=== PATIENT | male | born 1980 | race Caucasian/White ===

== ENCOUNTER 2020-11-05 07:56 | Emergency (ER) | payer OTHER, SELFPAY ==
--- NOTE | ~2020-11-05 | XR_ITS ---
EXAMINATION: XR CHEST CLINICAL INFORMATION: Chest pain. COMPARISON: 07/23/2019 chest radiographs. TECHNIQUE: Frontal view of the chest was obtained. FINDINGS: No significant abnormality is noted involving the heart, lungs, mediastinum, bony thorax or soft tissues. XR/XR chest 1V IMPRESSION: No acute cardiopulmonary process.
--- NOTE | 2020-11-05 07:58 | ECG_ITS ---
Test Reason : CHEST PAIN Blood Pressure : / mmHG Vent. Rate : 109 BPM Atrial Rate : 109 BPM P-R Int : 144 ms QRS Dur : 066 ms QT Int : 330 ms P-R-T Axes : 088 047 021 degrees QTc Int : 444 ms Sinus tachycardia Otherwise normal ECG When compared with ECG of 22-JUL-2019 21:30, Vent. rate has increased BY 38 BPM Referred By: Generic ED Physician Electronically Signed By:JUSTIN ROWE MD
[2020-11-05 08:08] VITALS: BP 143/97; PULSE 106; RESP 18; TEMP 36.3; BMI 31.3
[2020-11-05 08:28] VITALS: PULSE 103
[2020-11-05 08:29] LABS: MANUAL DIFF FLAG NO
[2020-11-05 08:33] LABS: Basophils Absolute Auto 0.1 X10*3/uL (0.0-0.2); Basophils Percent Auto 0.5 % (0-2); Eosinophils Absolute Auto 0.1 X10*3/uL (0.0-0.4); Eosinophils Percent Auto 0.4 % (0-4); Hematocrit 39.8 % (42-52); Hemoglobin 14.2 g/dl (14.0-18.0); Imm Gran Abs Auto 0.04 X10*3/uL (0.00-0.03); Imm Gran Pct Auto 0.3 % (0.0-0.4); Lymphocytes Absolute Auto 1.8 X10*3/uL (1.2-4.9); Lymphocytes Percent Auto 15.5 % (20-40); Mean Corpuscular HGB Conc 35.7 g/dl (31.0-36.0); Mean Platelet Volume 9.6 fL (9.4-12.4); Monocytes Absolute Auto 0.7 X10*3/uL (0.1-1.2); Monocytes Percent Auto 5.6 % (2-11); Neutrophils Percent Auto 77.7 % (45-73); Platelet Count 354 X10*3/uL (160-400); Red Blood Count 4.74 X10*6/uL (4.60-5.80); White Blood Count 11.6 X10*3/uL (4.8-10.8)
[2020-11-05 09:02] LABS: Anion Gap 18 (12-20); Blood Urea Nitrogen 10 mg/dL (9-16); Calcium 9.4 mg/dL (8.4-10.2); Carbon Dioxide 22 mmol/L (22-29); Chloride 98 mmol/L (96-108); Creatinine Clr Calc Pharmacy 141.1; Estimated Glomerular Filt Rate > 60; Glucose Random 208 mg/dL (60-115); Potassium 3.9 mmol/L (3.3-5.1); Sodium 134 mmol/L (135-145)
[2020-11-05 09:06] LABS: Troponin-I High Sensitivity 10.8 ng/L (<3.5-35.0)
[2020-11-05 09:29] VITALS: BP 135/90; PULSE 100; RESP 18; O2SAT 99
[2020-11-05 10:10] LABS: Prothrombin Time 12.1 SEC (10.8-13.0)
[2020-11-05 10:13] LABS: D Dimer < 200 NG/ML
[2020-11-05 10:21] LABS: COVID-19 Test Negative (Negative); IDNOW Serial# 9DD0AD1C
--- NOTE | 2020-11-05 11:36 | ED_ITS ---
HPI - Arrhythmia/Palpitations General Chief Complaint: Chest Pain Stated Complaint: chest pain, palpitations Time Seen by Provider: 11/05/20 09:14 Source: patient Mode of arrival: ambulatory Limitations: no limitations History of Present Illness HPI narrative: 40-year-old male with a past medical history of palpitations currently on diltiazem for approximately 1 month, hypertension, hyperlipidemia, diabetes, asthma, bipolar disorder 1, PTSD and liver disease presenting to the ED with complaints of palpitations and chest pressure that started at approximately 05:30 that will come up out of his sleep and is still present. He reports that he recently just traveled to [place] on Monday and return back yesterday after having an argument with his . He reports he had to take 4 planes total due to a layover. He reports due to the argument he had with his he was drinking with his friend last night and snorted some heroin. He reports that he was seen at [facility] approximately 1-2 months ago for similar complaint and had a Holter monitor and was started on diltiazem per patient but he is unsure why. He denies being on any blood thinners. He reports associated dizziness/lightheadedness when he stands up. Reports that the dizziness resolves when he sits down or lays down. He also reports associated nausea. He denies any headaches, fevers, neck pain/stiffness, shortness of breath, dyspnea on exertion, orthopnea, cough, vomiting, abdominal pain, diarrhea, constipation. Denies history of a DVT or PE, estrogen uses, recent surgery, recent immobilization. MD complaint: palpitations Onset (ago): hour(s) (Started approximately 05:30 prior to arrival) Duration: constant Severity: mild Context: occurred during rest and awoke with symptoms Arrhythmia history: other (Palpitations currently on diltiazem) Associated symptoms: chest pain and nausea Related Data Allergies Allergy/AdvReac Type Severity Reaction Status Date / Time No Known Allergies Allergy Unverified 02/13/20 17:13 [No Known Allergies*] Review of Systems Review of Systems: Constitutional : No Weight loss, No Fever, No Chills, No Night Sweats, No Fatigue, No Malaise ENT/Mouth : No Hearing loss, No Ear Pain, No Nasal Congestion, No Sinus Pain, No Hoarseness, No sore throat, No Rhinorrhea, No Swallowing Difficulty Eyes: No Eye Pain, No Swelling, No Redness, No Foreign Body, No Discharge, No Vision Changes Cardiovascular : Positive chest pain, positive palpitations, No SOB, no Dyspnea on Exertion, No Orthopnea, No LE Edema Respiratory : No Cough, No Sputum, No Wheezing, No Dyspnea Gastrointestinal : Positive Nausea, No Vomiting, No Diarrhea, No abdominal Pain, No Hematochezia, No Melena Genitourinary : No irregular bleeding, No Dysuria, No Urinary Frequency, No Hematuria, No Urinary Incontinence, No Urgency, No Flank Pain, No Urinary Flow Changes, No Hesitancy Musculoskeletal : No joint pain, No Myalgias, No Joint Swelling Skin : No Skin Lesions, No rash Neuro : Positive dizziness/lightheadedness when standing, No Weakness, No Numbness, No Paresthesias, No Loss of Consciousness, No Headache Psych : No Anxiety/Panic, No Depression, No SI/HI/AH/VH Heme/Lymph: No Bruising, No Bleeding,No Lymphadenopathy Endocrine : No Polyuria, No Polydipsia, No Temperature Intolerance Yes all other systems are reviewed and are negative [facility], [facility] Past Medical History Attestation statement: The following information was validated with the patient. Medical History Asthma Diabetes High cholesterol Hypertension Palpitation Social History Social History Alcohol intake: current Alcohol intake frequency: a few times a week Alcohol type: beer Patient Tobacco Use Status: Current everyday Tobacco user Smoked in Last 30 Days: Yes Use of substances other than those prescribed or required for medical reasons: Yes Substance Use Type: Crack/Cocaine Substance Use Frequency: Occasionally Last Used Substance: Hours (ago) Advance Directives: Yes Advance Directives Information Provided: Yes Advance Directives on File: No Physical Exam Vital Signs: Vital Signs: Last Vital Signs Temp 98.5 F 11/05/20 11:51 Pulse 89 11/05/20 11:51 Resp 14 11/05/20 11:51 BP 135/89 11/05/20 11:51 Pulse Ox 98 11/05/20 11:51 Body Mass Index 31.3 vital signs have been reviewed as normal and appeared to be correct. Blood pressure normal. Heart rate tachycardic at 106. Respiration rate normal. Temperature normal. Oxygen saturation normal. Appearance: Alert. Oriented X3. No acute distress. Head: Normal external exam. Normocephalic. Atraumatic. No Dalton signs noted. No raccoon eyes noted Eyes: PERRLA. EOMI. Conjunctiva and sclera normal. Eyelids normal. ENT: Pharynx normal. Uvula midline. Moist mucous membranes. Neck: Normal inspection. Neck supple. FROM. No adenopathy. Thyroid Normal. No meningeal signs. No neck mass noted. CVS: Normal heart rate and rhythm. Heart sound normal. Pulses normal throughout. No murmurs/rales/gallops. Respiratory: No respiratory distress. Painless inspiration. Breath sounds normal. No wheezes/rales/rhonchi noted. Chest nontender. No accessory muscle usage noted or decreased air movement noted. Abdomen: Soft and nontender. Bowel sounds normal in all 4 quadrants. No dis tention noted. No organomegaly noted. No visible injury noted. Back: No CVA tenderness. Full range of motion noted. No rashes/lesion/induration/fluctuance or signs of infection noted. Skin: Skin warm and dry. Normal skin color. Normal skin turgor. No rashes/lesions/lacerations noted. Extremities: No lower extremity edema. Extremities exhibit normal range of motion. Extremities nontender. Neuro: Oriented X 3. No motor deficit. No sensory deficit. Reflexes normal. Normal steady gait. No focal neuro deficits noted. Vascular: + radial pulses/+ 2 distal pedal pulses/+2 dorsalis pedis b/l. Normal cap refill. No cyanosis noted to upper extremity nails and lower extremity toes nails. Course Course Course Narrative: 9:35am - 40-year-old male with a past medical history of palpitations currently on diltiazem for approximately 1 month, hypertension, hyperlipidemia, diabetes, asthma, bipolar disorder 1, PTSD and liver disease presenting to the ED with complaints of palpitations and chest pressure that started at approximately 05:30 that awoke him out of his sleep and is still present. Recent travel to [place] on Monday returned yesterday. Recent heroin drug usage. Recently seen at [facility] approximately 1 month ago for palpitations started on diltiazem. - labs obtained in triage in patient with an elevated white blood cell count at 11,000. Sodium 134. Random glucose 203. Troponin 10.8. All other labs are within normal limits. COVID swab is negative. EKG is sinus tachycardia with ventricular rate of 109 with a T-wave inversion in lead 3 otherwise no acute processes are noted. Similar compared to prior EKG 07/22/2019. Chest x-ray within normal limits no acute processes are noted. - repeat troponin negative delta went from 10.8-7.9. - patient has been on the cardiac nurse specialist and no changes on the cardiac nurse specialist. Therefore will DC home with instructions to follow-up with grappler and PCP and to return if any new or worsening symptoms. Patient understands agrees with this plan. MDM - Arrhythmia/Palpitations Medical Records Attestation: I reviewed the patient's medical records. Lab Data Attestation: I reviewed the patient's lab results. Result diagrams: 11/05/20 08:24 11/05/20 08:24 Labs: Lab Results 11/05/20 11/05/20 11/05/20 Range/Units 08:24 08:24 08:24 WBC 11.6 H (4.8-10.8) X10*3/uL RBC 4.74 (4.60-5.80) X10*6/uL Hgb 14.2 (14.0-18.0) g/dl Hct 39.8 L (42-52) % MCV 84.0 (80-98) fL MCH 30.0 (27.0-33.0) pg MCHC 35.7 (31.0-36.0) g/dl RDW 11.0 (11.0-16.0) % Plt Count 354 (160-400) X10*3/uL MPV 9.6 (9.4-12.4) fL Immature Gran % (Auto) 0.3 (0.0-0.4) % Neut % (Auto) 77.7 H (45-73) % Lymph % (Auto) 15.5 L (20-40) % [place] % (Auto) 5.6 (2-11) % Eos % (Auto) 0.4 (0-4) % Baso % (Auto) 0.5 (0-2) % Lymph # (Auto) 1.8 (1.2-4.9) X10*3/uL [place] # (Auto) 0.7 (0.1-1.2) X10*3/uL Eos # (Auto) 0.1 (0.0-0.4) X10*3/uL Baso # (Auto) 0.1 (0.0-0.2) X10*3/uL Abs Immat Gran (auto) 0.04 H (0.00-0.03) X10*3/uL Absolute Neuts (auto) 9.0 H (2.0-8.3) X10*3/uL Absolute Nucleated RBC 0.000 (0.0-0.012) X10*3/uL Nucleated RBC % (auto) 0.0 (0.0-0.2) /100WBC PT (10.8-13.0) SEC INR (0.9-1.1) D-Dimer NG/ML Sodium 134 L (135-145) mmol/L Potassium 3.9 (3.3-5.1) mmol/L Chloride 98 (96-108) mmol/L Carbon Dioxide 22 (22-29) mmol/L Anion Gap 18 (12-20) BUN 10 (9-16) mg/dL Creatinine 0.78 (0.5-1.4) mg/dL Estim Creat Clear Calc 141.1 Estimated GFR > 60 Random Glucose 208 H (60-115) mg/dL Calcium 9.4 (8.4-10.2) mg/dL Troponin I High Sens 10.8 (<3.5-35.0) ng/L COVID-19 (DARIN) (Negative) COVID-19 Clin Com 11/05/20 11/05/20 11/05/20 Range/Units 09:49 09:49 11:49 WBC (4.8-10.8) X10*3/uL RBC (4.60-5.80) X10*6/uL Hgb (14.0-18.0) g/dl Hct (42-52) % MCV (80-98) fL MCH (27.0-33.0) pg MCHC (31.0-36.0) g/dl RDW (11.0-16.0) % Plt Count (160-400) X10*3/uL MPV (9.4-12.4) fL Immature Gran % (Auto) (0.0-0.4) % Neut % (Auto) (45-73) % Lymph % (Auto) (20-40) % [place] % (Auto) (2-11) % Eos % (Auto) (0-4) % Baso % (Auto) (0-2) % Lymph # (Auto) (1.2-4.9) X10*3/uL [place] # (Auto) (0.1-1.2) X10*3/uL Eos # (Auto) (0.0-0.4) X10*3/uL Baso # (Auto) (0.0-0.2) X10*3/uL Abs Immat Gran (auto) (0.00-0.03) X10*3/uL Absolute Neuts (auto) (2.0-8.3) X10*3/uL Absolute Nucleated RBC (0.0-0.012) X10*3/uL Nucleated RBC % (auto) (0.0-0.2) /100WBC PT 12.1 (10.8-13.0) SEC INR 1.0 (0.9-1.1) D-Dimer < 200 NG/ML Sodium (135-145) mmol/L Potassium (3.3-5.1) mmol/L Chloride (96-108) mmol/L Carbon Dioxide (22-29) mmol/L Anion Gap (12-20) BUN (9-16) mg/dL Creatinine (0.5-1.4) mg/dL Estim Creat Clear Calc Estimated GFR Random Glucose (60-115) mg/dL Calcium (8.4-10.2) mg/dL Troponin I High Sens 7.9 (<3.5-35.0) ng/L COVID-19 (DARIN) Negative (Negative) COVID-19 Clin Com See Note Imaging Data Chest x-ray: Attestation: I personally reviewed and interpreted this imaging study as follows: Radiologist's impression: FINDINGS: No significant abnormality is noted involving the heart, lungs, mediastinum, bony thorax or soft tissues. XR/XR chest 1V IMPRESSION: No acute cardiopulmonary process. ECG Data Attestation: I personally reviewed and interpreted this ECG as follows: ECG interpretation date: 11/05/20 ECG interpretation time: 08:02 Interpretation: EKG is sinus tachycardia with ventricular rate of 109 with a T- wave inversion in lead 3 otherwise no acute processes are noted. Similar compared to prior EKG 07/22/2019. Scores Heart Score History: -1- moderately suspicious ECG: -0- normal Age: -0- < or = 45 Risk factory: -2- 3 or more risk factors or treated atherosclerosis Troponin: -1- >1 - <3x normal limit Score: 4 Risk: 16.6% Discharge Plan Discharge Clinical Impression: Palpitation, Chest pain Patient Disposition: Home, Self-Care Instructions: Heart Palpitations (ED), Chest Pain (ED) Additional Instructions: Please continue taking your previously prescribed medications as previously prescribed. You need to follow-up with your grappler and your PCP. Return if any new or worsening symptoms. Please do not do any drugs they are bad for you. Referrals: Physician,Unknown [Primary Care Provider] - 2 days Chinmay Almaraz MD [Physician] - 2 days Stand Alone Forms: Work/School Release Print Language: Kazakh
[2020-11-05 11:51] VITALS: BP 135/89; PULSE 89; RESP 14; TEMP 36.9; O2SAT 98
[2020-11-05 12:26] LABS: Troponin-I High Sensitivity 7.9 ng/L (<3.5-35.0)
[2020-11-05 13:00] VITALS: BP 153/97; PULSE 88; RESP 18; O2SAT 99
== END 2020-11-05 13:44 | disposition home or self-care (01) ==
PROVIDERS: Physician Assistant Medical; Emergency Provider Emergency Medicine Emergency Medical Services
DX: R07.9 Chest pain, unspecified (principal); R00.2 Palpitations; R42 Dizziness and giddiness; R00.0 Tachycardia, unspecified; Z20.822 Contact with and (suspected) exposure to COVID-19; I10 Essential (primary) hypertension; E78.5 Hyperlipidemia, unspecified; E11.9 Type 2 diabetes mellitus without complications; F17.210 Nicotine dependence, cigarettes, uncomplicated
CPT/HCPCS: 36415; 71045; 80048; 84484; 85025; 85379; 85610; 87635; 93005; 99284; 99285

== ENCOUNTER 2021-06-08 11:01 | Outpatient (REF) | payer OTHER, SELFPAY ==
[2021-06-08 13:15] LABS: Binax Internal Control QC Valid; Binax Now Covid-19 Ag Negative (Negative)
== END 2021-06-08 11:02 | disposition home or self-care (01) ==
LOC: HO.LAB 11:01
PROVIDERS: Visit Provider Internal Medicine
DX: Z20.822 Contact with and (suspected) exposure to COVID-19 (principal)
CPT/HCPCS: C9803

== ENCOUNTER 2023-02-10 12:53 | Inpatient (IN) | payer OTHER, SELFPAY ==
--- NOTE | ~2023-02-10 | XR_ITS ---
EXAMINATION: XR CHEST CLINICAL INFORMATION: Chest pain. Cocaine use. COMPARISON: 11/05/2020 TECHNIQUE: 2 views of the chest were obtained. FINDINGS: The lungs are well expanded. No focal consolidation. No pleural effusion. Cardiac silhouette is unchanged. XR/XR chest 2V IMPRESSION: No acute abnormality.
[2023-02-10 13:06] VITALS: BP 172/95; PULSE 108; RESP 18; TEMP 36.6; O2SAT 98; BMI 30.3
--- NOTE | 2023-02-10 13:16 | ED_ITS ---
HPI - Chest Pain General Chief Complaint: Psychiatric Symptoms Stated Complaint: depression/ SI Time Seen by Provider: 02/10/23 13:14 Source: patient Mode of arrival: ambulatory Limitations: no limitations History of Present Illness HPI narrative: 43-year-old male who presents emergency department for evaluation of depression and chest pain. Patient states that he has a history of depression, he states that he ran out of his medications approximately 1 or 2 months prior. He states that his ex-, who was its best friend 1 month prior and this made his depression worse. States that he started drinking and he believes that this is made his depression worse as well. Patient states that he drinks 12 beers and a half a pt of whiskey every other day. He states he did drink prior to coming to the emergency department. He states that when he stop drinking in the past he does get shakes and that in the past he has had delirium tremens with auditory hallucinations. Patient did use intranasal cocaine at 23:00 last night. He states that approximately 3 hours prior to coming to the emergency department he did developed chest pain. He describes as a pressure-like pain in the center of his chest that is been constant, worse with movement. He did have associated shortness of breath. The pain is 7/10 at its worst. The pain did not radiate to his neck, jaw or back. States he has had similar pain in the past. He denied fever, chills, rhinorrhea, sore throat, cough, nausea, vomiting, abdominal pain. Related Data Allergies Allergy/AdvReac Type Severity Reaction Status Date / Time No Known Allergies Allergy Verified 02/10/23 13:03 [No Known Allergies*] Review of Systems 2 Review of Systems: Yes all other systems are reviewed and are negative [facility] Past Medical History Attestation statement: The following information was validated with the patient. [facility] Narrative: Social history: He states that he stop smoking cigarettes by your prior but started smoking again yesterday. He does admit to using cocaine at 23:00 and he does drink alcohol daily he states he did drink prior to coming to the emergency department. Medical History Asthma Diabetes High cholesterol Hypertension Palpitation Social History Social History Alcohol intake: current Alcohol intake frequency: a few times a week Alcohol type: beer Patient Tobacco Use Status: Current everyday Tobacco user Substance Use Type: Crack/Cocaine Advance Directives: No Physical Exam 2 Vital Signs: Vital Signs: Last Vital Signs Temp 99.2 F 02/10/23 16:52 Pulse 89 02/10/23 16:52 Resp 18 02/10/23 16:52 BP 153/92 H 02/10/23 16:52 Pulse Ox 96 02/10/23 16:52 O2 Del Method Room Air 02/10/23 16:52 BMI result Body Mass Index 30.3 Vital signs revealed an elevated pulse of 108 and elevated blood pressure of 172/95 Exam: General: Awake, alert in no distress Head: Normocephalic, atraumatic EENT: PERRL, Lids normal, sclera normal, conjunctiva normal, nose normal , ears normal, throat without erythema or exudates Neck: Supple, no adenopathy, trachea midline and nontender Lung: breath sounds symmetric, no wheezing, rales or rhonchi Chest: symmetric movement, nontender Heart: regular rate and rhythm, normal S1, S2 no murmurs or rubs Abdomen: soft, non-tender, nondistended, normal bowel sounds Back: no vertebral tenderness, no CVAT Extremities: no deformities, moves all extremities symmetrically Skin: no rashes, no lesion, normal color and warmth Neuro: Awake, alert, oriented, normal speech, cranial nerves intact, moves all extremities symmetrically Psych: Pleasant, cooperative Medications Administered Discontinued Medications Generic Name Dose Route Start Last Admin Trade Name Freq PRN Reason Stop Dose Admin Ibuprofen 400 mg 02/10/23 13:33 02/10/23 13:38 Ibuprofen 400 Mg Tablet PO 02/10/23 13:34 400 mg ONCE ONE Administration Lorazepam 2 mg 02/10/23 13:33 02/10/23 13:38 Lorazepam 1 Mg Tablet PO 02/10/23 13:34 2 mg ONCE STA Administration Medical Decision Making Medical Decision Making MDM Narrative: 43-year-old male with a history of depression, bipolar disorder, PTSD, hypertension, high cholesterol, diabetes, asthma, alcohol use disorder, cocaine use who presents emergency department for evaluation of increased depression, chest pain x3 hours-did use cocaine yesterday at 23:00. Patient does drink a significant amount of alcohol daily-12 beers and half a pt of whiskey. Patient's vital signs did reveal an elevated pulse and elevated blood pressure otherwise unremarkable. Physical examination was unremarkable. I ordered a CBC, CMP, PT/INR, PTT, troponin, ethanol level, 12 EKG, two view chest x-ray, COVID-19, urine drug screen, CK, urinalysis. Patient's pain was treated with Motrin 400 mg orally. Patient was also given Ativan 2 mg orally and I ordered Ativan 2 mg orally every 2 hours as needed for alcohol withdrawal. Patient was also started on a CIWA protocol. 1636 Patient EKG and chest x-ray unremarkable. Patient's ETOH level was below detectable limits. Patient's high sensitive troponin I was detectable but not elevated at 9.8, repeat is due at 17:30 hours. At the end of my shift, patient's care was turned over to my colleague, Dr. Burgess. If the patient's repeat high sensitive troponin I is not elevated then the patient can be medically cleared 1716: Patient was seen by care team reported the following [facility] for SI. He is actively suicidal with a plan to drive his car into on coming traffic due to his depression. I have consulted with my equipment records supervisor and we believe that the pt should go inpatient. Differential Diagnosis Differential Diagnoses: The differential diagnosis associated with the presentation includes Differential diagnosis includes was not limited to depression, suicidal ideation, homicidal ideation, musculoskeletal pain, myocardial infarction, myocardial ischemia, rhabdomyolysis, electrolyte abnormality, anemia Admission/Observation Consideration of admission/observation: Escalation of care including admission/observation considered Lab Data MDM Lab Attestation statement: I reviewed the patient's lab results. My interpretation patient's laboratory evaluation is as follows: CBC was normal. Coags were normal. Glucose elevated 184. Troponin at 1356 was detectable but not elevated at 9.8. Repeat due at 16:30 hours. UA was negative. U tox positive for cocaine . ETOH below detectable limits. COVID-19 pending. 02/10/23 13:56 02/10/23 13:56 Labs: Lab Results 02/10/23 02/10/23 Range/Units 13:28 13:56 WBC 10.5 (4.8-10.8) X10*3/uL RBC 4.93 (4.60-5.80) X10*6/uL Hgb 14.6 (14.0-18.0) g/dl Hct 41.9 L (42.0-52.0) % MCV 85.0 (80.0-98.0) fL MCH 29.6 (27.0-33.0) pg MCHC 34.8 (31.0-36.0) g/dl RDW 12.0 (11.0-16.0) % Plt Count 348 (160-400) X10*3/uL MPV 10.0 (9.4-12.4) fL Immature Gran % (Auto) 0.3 (0.0-0.4) % Neut % (Auto) 74.3 H (45-73) % Lymph % (Auto) 17.0 L (20-40) % [place] % (Auto) 6.9 (2-11) % Eos % (Auto) 1.0 (0-4) % Baso % (Auto) 0.5 (0-2) % Lymph # (Auto) 1.8 (1.2-4.9) X10*3/uL [place] # (Auto) 0.7 (0.1-1.2) X10*3/uL Eos # (Auto) 0.1 (0.0-0.4) X10*3/uL Baso # (Auto) 0.1 (0.0-0.2) X10*3/uL Abs Immat Gran (auto) 0.03 (0.00-0.03) X10*3/uL Absolute Neuts (auto) 7.8 (2.0-8.3) x10*3/uL Absolute Nucleated RBC 0.000 (0.0-0.012) X10*3/uL Nucleated RBC % (auto) 0.0 (0.0-0.2) /100WBC PT 10.5 L (11.1-13.3) SEC INR 0.9 (0.9-1.1) APTT 33.8 (26.0-36.4) SEC Sodium 138 (135-145) mmol/L Potassium 4.0 (3.3-5.1) mmol/L Chloride 102 (96-108) mmol/L Carbon Dioxide 27 (22-29) mmol/L Anion Gap 13 (12-20) BUN 10 (9-16) mg/dL Creatinine 0.82 (0.5-1.4) mg/dL Estim Creat Clear Calc 128.1 Estimated GFR > 60 Random Glucose 184 H (60-115) mg/dL Calcium 9.8 (8.4-10.2) mg/dL Total Bilirubin 0.6 (0.0-1.0) mg/dL AST 25 (5-37) U/L ALT 30 (0-40) U/L Alkaline Phosphatase 94 (39-117) U/L Total Creatine Kinase 271 H (38-174) U/L Troponin I High Sens 9.8 (<3.5-35.0) ng/L Total Protein 8.0 (6.5-8.0) g/dL Albumin 4.8 (3.5-5.0) g/dL Lipase 18 (8-78) U/L Urine Color Yellow Urine Appearance Clear Urine pH 5.5 (5.0-9.0) Ur Specific Campbell 1.010 (1.005-1.025) Urine Protein Negative (Neg-Trace) mg/dL Urine Glucose (UA) 100 H (Negative) mg/dL Urine Ketones Negative (Negative) mg/dL Urine Blood Negative (Negative) Urine Nitrite Negative (Negative) Ur Leukocyte Esterase Negative (Negative) Urine Opiates Screen Not Detected (Not Detect) Urine Fentanyl Screen Not Detected (Not Detect) Ur Barbiturates Screen Not Detected (Not Detect) Ur Phencyclidine Scrn Not Detected (Not Detect) Ur Amphetamines Screen Not Detected (Not Detect) U Benzodiazepines Scrn Not Detected (Not Detect) Urine Cocaine Screen POSITIVE H (Not Detect) U Marijuana (THC) Screen Not Detected (Not Detect) Ethyl Alcohol < 10 mg/dL Independent Interpretation I performed an independent interpretation of an: EKG Interpretation: My independent interpretation patient's 12 EKG done at 13 18 is as follows: Normal sinus rhythm with a rate of 93, normal ID interval, QRS duration QTC interval, no ST segment elevation, no ST segment depression, no PACs, no PVCs, this is a normal EKG. My independent interpretation patient's two view x-rays as follows: No acute process, no pneumothorax Radiology Impression Discussion of test interpretation with radiology: I have reviewed the radiologist's reading. Radiologist Impression: XR chest 2V IMPRESSION: No acute abnormality. Dictated By: Ector Mae MD Discharge Plan Discharge Clinical Impression: Depression, Chest pain, Cocaine use, Alcohol use, Suicidal ideation Patient Disposition: Still a Patient Interventions: [place]-Suicide Risk Severity Scale Last Done: 02/10/23 14:43
--- NOTE | 2023-02-10 13:16 | ECG_ITS ---
Test Reason : CHEST PAIN Blood Pressure : / mmHG Vent. Rate : 093 BPM Atrial Rate : 093 BPM P-R Int : 156 ms QRS Dur : 072 ms QT Int : 366 ms P-R-T Axes : 066 065 024 degrees QTc Int : 455 ms Normal sinus rhythm Normal ECG When compared with ECG of 05-NOV-2020 08:02, No significant change was found Referred By: Juan Vila Electronically Signed By:CHA SOLITARIO
[2023-02-10] MEDS: Ibuprofen 400 MG TABLET PO (13:38)
[2023-02-10] MEDS: LORazepam 1 MG TABLET 2 MG PO (13:38)
[2023-02-10 13:40] LABS: Appearance Urine Clear; Color Urine Yellow; Glucose Urine UA 100 mg/dL (Negative); Leukocyte Esterase Urine Negative (Negative); Nitrite Urine Negative (Negative); PH 5.5 (5.0-9.0); Urine Blood Negative (Negative); Urine Ketones Negative (Negative); Urine Protein Negative (Neg-Trace)
[2023-02-10 14:03] LABS: MANUAL DIFF FLAG NO
[2023-02-10 14:11] LABS: INTERNATIONAL NORM RATIO 0.9 (0.9-1.1); Prothrombin Time 10.5 SEC (11.1-13.3)
[2023-02-10 14:12] LABS: Basophils Absolute Auto 0.1 X10*3/uL (0.0-0.2); Basophils Percent Auto 0.5 % (0-2); Eosinophils Absolute Auto 0.1 X10*3/uL (0.0-0.4); Hematocrit 41.9 % (42.0-52.0); Hemoglobin 14.6 g/dl (14.0-18.0); Imm Gran Abs Auto 0.03 X10*3/uL (0.00-0.03); Imm Gran Pct Auto 0.3 % (0.0-0.4); Lymphocytes Absolute Auto 1.8 X10*3/uL (1.2-4.9); Mean Corpuscular HGB Conc 34.8 g/dl (31.0-36.0); Mean Corpuscular Hemoglobin 29.6 pg (27.0-33.0); Monocytes Absolute Auto 0.7 X10*3/uL (0.1-1.2); Monocytes Percent Auto 6.9 % (2-11); Neutrophils Absolute Auto 7.8 x10*3/uL (2.0-8.3); Neutrophils Percent Auto 74.3 % (45-73); Platelet Count 348 X10*3/uL (160-400); Red Blood Count 4.93 X10*6/uL (4.60-5.80); White Blood Count 10.5 X10*3/uL (4.8-10.8)
[2023-02-10 14:14] LABS: Partial Thromboplastin Time 33.8 SEC (26.0-36.4)
[2023-02-10 14:24] LABS: Ethanol < 10 mg/dL
[2023-02-10 14:25] LABS: Alanine Aminotransferase 30 U/L (0-40); Albumin Level 4.8 g/dL (3.5-5.0); Alkaline Phosphatase 94 U/L (39-117); Anion Gap 13 (12-20); Aspartate Amino Transferase 25 U/L (5-37); Bilirubin Total 0.6 mg/dL (0.0-1.0); Blood Urea Nitrogen 10 mg/dL (9-16); Calcium 9.8 mg/dL (8.4-10.2); Carbon Dioxide 27 mmol/L (22-29); Chloride 102 mmol/L (96-108); Creatinine Clr Calc Pharmacy 128.1; Estimated Glomerular Filt Rate > 60; Glucose Random 184 mg/dL (60-115); Lipase 18 U/L (8-78); Sodium 138 mmol/L (135-145)
[2023-02-10 14:26] LABS: Amphetamine Screen Urine Not Detected (Not Detect); Barbiturates, Urine Not Detected (Not Detect); Benzodiazepines Screen Urine Not Detected (Not Detect); Cannabinoid Screen Urine Not Detected (Not Detect); Cocaine Screen Urine POSITIVE (Not Detect); Fentanyl, urine Not Detected (Not Detect); Opiate Screen Urine Not Detected (Not Detect); Phencyclidine Screen Urine Not Detected (Not Detect)
[2023-02-10 14:28] LABS: Troponin-I High Sensitivity 9.8 ng/L (<3.5-35.0)
--- NOTE | 2023-02-10 14:35 | PC.NURSE ---
calm, cooperative and polite since arrival, medicated as ordered, aware and agreeable to care plan, will draw 2nd troponin at 1700, nad, off unit for chest xray, took a shower and now in bed
--- NOTE | 2023-02-10 16:51 | PC.NURSE ---
patient calm and cooperative, luxembourger speaking male. Resting comfortably on bed at this time, respirations even and unlabored, skin pwd, no signs of withdrawal at this time. Pt offers no complaints to this RN. Handy, CARE team spoke with patient. awaiting dinner at this time
[2023-02-10 16:52] VITALS: BP 153/92; PULSE 89; RESP 18; TEMP 37.3; O2SAT 96
[2023-02-10 17:24] LABS: COVID-19 Test Negative (Negative); IDNOW Serial# BCCEAD1C
--- NOTE | 2023-02-10 18:11 | MHC.CARE ---
T/W tried to contact [facility] multiple times to try and present for an IPLOC stay. Something must be wrong with their phones as the call gets disconnected almost immediately. T/W will continue to try [facility] at [phone].
--- NOTE | 2023-02-10 18:44 | PC.NURSE ---
Patient sleeping, respirations even and unlabored, skin pwd, no apparent distress. Offers no complaints to this RN when awake. Second trop drawn. Per CARE team, plan for inpt admission
[2023-02-10 18:56] LABS: Troponin-I High Sensitivity 8.5 ng/L (<3.5-35.0)
--- NOTE | 2023-02-10 22:24 | MHC.CARE ---
CARE Team attempted to call [facility] again to no avail. A message for a call back was left earlier in the night and the option to leave a message for a call back was not offered this time around. CARE Team will continue to attempt to get ahold of [facility] for a pre-auth
[2023-02-10 23:39] VITALS: BP 151/92; PULSE 95; RESP 18; TEMP 36.4; O2SAT 98; BMI 29.4
--- NOTE | 2023-02-10 23:40 | MHC.CARE ---
CARE Team reached [facility] and received auth for the pt. Auth number is [id number] with a review date on Monday02/14/23. [place] Mohamud is the person to call for the review at [phone].
[2023-02-11 00:24] LABS: Glucose, Whole Blood 187 mg/dL (60-115)
--- NOTE | 2023-02-11 00:41 | PC.ADMIT ---
Dylon is admitted on a CV for the [facility] for unspecified depressive d/o and suicidal ideation to drive his car into traffic. He is calm, cooperative and oriented X's4. Dylon endorses worsening depression and anxiety. he endorses auditory/visual hallucinations and vivid dreams. He denies homicidal ideation. His mood is depressed and his affect is flat. he is tearful during the admission and stated that he has a childhood trauma history and that his ex-, whom he describes as his best friend, recently. Additionally he states he still feels very depressed over the passing of his brother 2 years ago. he states that he drinks approximately 12 beers daily and that he last drank this morning (3 beers). he has been placed on a CIWA and is not currently showing any S/S of ETOH withdrawal at this time. The patient states that he was prescribed a C-Pap machine but has never used it. oriented to the unit, monitor for safety, Plan of Care initiated.
[2023-02-11 07:53] LABS: Estimated Average Glucose 146 mg/dL; Hemoglobin A1c % 6.7 % (<6.0)
[2023-02-11 08:09] LABS: Alanine Aminotransferase 20 U/L (0-40); Albumin Level 3.8 g/dL (3.5-5.0); Alkaline Phosphatase 80 U/L (39-117); Anion Gap 10 (12-20); Aspartate Amino Transferase 21 U/L (5-37); Bilirubin Total 0.7 mg/dL (0.0-1.0); Blood Urea Nitrogen 11 mg/dL (9-16); Calcium 9.1 mg/dL (8.4-10.2); Carbon Dioxide 25 mmol/L (22-29); Chloride 105 mmol/L (96-108); Cholesterol 164 mg/dL (<200); Estimated Glomerular Filt Rate > 60; Glucose Fasting 140 mg/dL (60-99); HDL Cholesterol 37 mg/dL (>40); LDL Cholesterol Calculated 87 mg/dL (<100); Potassium 4.1 mmol/L (3.3-5.1); Sodium 136 mmol/L (135-145); Total Protein 6.6 g/dL (6.5-8.0); Triglycerides 203 mg/dL (<150)
[2023-02-11 08:10] VITALS: BP 149/73; PULSE 71; RESP 16; TEMP 36.2; O2SAT 97
[2023-02-11 08:23] LABS: Glucose, Whole Blood 137 mg/dL (60-115)
[2023-02-11 08:24] LABS: Thyroid Stimulating Hormone 0.28 uIU/mL (0.32-4.0)
[2023-02-11 08:40] LABS: Folate 12.6 ng/mL (> or = 4.0); Vitamin B12 318 pg/mL (200-900)
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
[2023-02-11] MEDS: Loratadine 10 MG TABLET PO (10:00)
[2023-02-11] MEDS: hydrOXYzine HCL 25 MG TABLET PO (10:00)
[2023-02-11] MEDS: dilTIAZem HCL CD 180 MG CAP.ER.24H PO (10:15)
[2023-02-11] MEDS: Acamprosate Calcium 333 MG TABLET.DR 666 MG PO ×2 (10:15→21:40)
[2023-02-11 16:00] VITALS: BP 137/82; PULSE 77; RESP 17; TEMP 36.6; O2SAT 97
[2023-02-11] MEDS: LORazepam 1 MG TABLET 2 MG PO (16:35)
--- NOTE | 2023-02-11 17:07 | PC.NURSE ---
Patient spent most of shift in bed resting and isolating in his room. Patient able to engage in conversation easily and is making his needs known. Dylon reports eating some of his meals, with no n/v noted. Patient on CIWA q 4 hours and scored 7 at 0800, 6 at 12noon, and 10 at 1600. Patient received Ativan 2mg at 1639 and vistaril 25mg at 1000 for c/o of anxiety 7/10 with relief noted at 1100. Hospitalist notified of Patient's lab results TSH 0.28, Hgaic 6.7, HDL 37 and trigliceride 203. New order received for POC BID which were 127,158 with no s/s hypo/hyperglycemia noted. Patient denies SI/HI, but did report that he hears a whisper of a voice. Per patient, they are mild and do not command me. Patient declined to elaborate at this time. Patient encourage to shower and get OOB to groups but declined. He medication and treatment compliant with no unsafe behavior observed.
[2023-02-11 17:15] LABS: Glucose, Whole Blood 158 mg/dL (60-115)
[2023-02-11 20:10] VITALS: BP 140/90; PULSE 85; RESP 18; TEMP 36.9; O2SAT 96
[2023-02-11] MEDS: cloNIDine HCL 0.1 MG TABLET PO (22:46)
[2023-02-11] MEDS: Prazosin HCL 1 MG CAPSULE 2 MG PO (22:46)
--- NOTE | 2023-02-11 22:48 | PC.NURSE ---
Dylon c/o not having Clonidine or Prazosin for HS medications, new orders obtained for clonidine 0.1 mg and Prazosin 2mg at HS. patient accepted medications without incident, continue to monitor for safety, continue Plan of Care
[2023-02-12 08:35] VITALS: BP 132/85; PULSE 85; RESP 16; TEMP 36.6; O2SAT 98
[2023-02-12 08:40] LABS: Glucose, Whole Blood 121 mg/dL (60-115)
[2023-02-12] MEDS: dilTIAZem HCL CD 180 MG CAP.ER.24H PO (09:31)
[2023-02-12] MEDS: Loratadine 10 MG TABLET PO (09:31)
[2023-02-12] MEDS: Acamprosate Calcium 333 MG TABLET.DR 666 MG PO ×2 (09:31→21:39)
[2023-02-12] MEDS: Acetaminophen 325 MG TABLET 650 MG PO (10:04)
--- NOTE | 2023-02-12 11:45 | PC.NURSE ---
Per patient, i had a thought to last night, but didn't tell anyone. I didn't hurt myself and I do not feel like hurting my self now. Patient unable to describe how he was going to hurt self last night. No plan voiced just vague SI. Miri Cannon FLYER REPAIRER notified of above. Patient alert Ox4, Currently denies SI/HI, or VH. Patient did report having voices but not command type or bothersome. POC this am was 121, Patient denies s/s of hypo/hyperglycemia. Patinet continues on CIWA q 4 hours current score was 5 with no concerns voiced. Patient spent most of shift in bed, resting and withdrawn. He appears depressed and slightly anxious upon approach. Patient is medication and treatment compliant. Patient is making his needs known appropriately. ADL's appear fair, patient encourage to shower and attend unit activities. Per patient, mu lower back hurts and want to rest. Patient utilize PRn tylenol for pain with effect noted in asleep. Patient signed his treatment plan this shift with quality control lead nurse. No unsafe behavior expressed or exhibited this shift.
[2023-02-12] MEDS: LORazepam 1 MG TABLET 2 MG PO ×2 (12:34→16:50)
--- NOTE | 2023-02-12 16:13 | PC.NURSE ---
Addendum entered by Valeria Bowie RN 02/12/23 18:34: Patient stated, I need to call my employer tomorrow, was suppose to start a job that i really wanted. Patient tearful and given one to one contact with T/W. Patient used unit phone to call his girlfriend continued to be tearful. Patient reported he was safe and just upset about his job. Patient offered PRN for anxiety and declined. Per patient, i don't need anything now, I'm safe. Addendum entered by Valeria Bowie RN 02/12/23 16:54: Patient woken at 1600 to complete CIWA assessment and scored 11, Patient b/p 114/59 with HR of 72. Miri Cannon NP. informed of patient's increased voices and safety status. B/P rechecked and 120/64 Hr 78. Patient reports 5/10 anxiety and Given Ativan 2mg for ciwa score or 11. No unsafe behavior observed. Patient remain in bed with no further complaints voiced. Original Note: Patient assessed for Ciwa by this script writer at 1200pm scored a 10 and at 1600 scored a 11. Patient medicated with ativan 2mg for his s/s of withdrwal see ciwa assessment for details. Patient continues to have voices which he reported at 1600 telling him to but no plan reported by patient. Patient stated, i am not going to hurt myself here. Patient agreed to notify staff if he felt unsafe or had changes in his safety. No unsafe behavior noted.
[2023-02-12 16:50] VITALS: BP 120/64; PULSE 78
--- NOTE | 2023-02-12 20:19 | HO.PSYCHPN ---
Subjective Subjective Date of Service: 02/12/23 Reason For Visit: SI Subjective Notes: Conditional Voluntary Interim History: Pt reports feeling slightly better but still worried about hsi alcohol use and how is affecting his relationships and life. He reports feeling depressed. He continues to endose SI but no plan. When RN doing ciwa he was reporting hallucination- He does not appear internally preoccupied and these do not appear to be alcohol hallucinosis- I wouldn't score them as such. Review of Systems Review of Systems Pt denies chest pain. No SOB. No changes in vision. Pt reports acid reflux, no vomiting, or signs of gastric bleeding (vomiting blood). He reports intermittent numbness of bilat hands and feet Pt reports lower back pain No diarhea, or loose stools, no abdominal pain Yes all other systems are reviewed and are negative Mental Status Exam Mental Status Exam Narrative: Appearance:wearing hospital gown, fair hygiene, in NAD behavior:cooperative Psychomotor:no agitation or retardation noted Speech:clear, normal rate/rhythm/volume, spontaneous TP:linear TC:feeling depressed, hopeless at times but also wanting to get help for alcohol and cocaine use. Mood: depressed Affect:tearful, blunted SI:passive HI:none VH/AH:pt describes hearing someone calling his name and shadows, mostly when he is waking up, and feels paralyzed, suspect these are hypnopompic hallucinations, which could be related to alcohol-induced narcolepsy-like symptoms. tx for these is not antipsychotics. No AH/VH during the day. Delusions:none Insight/judgment:fair x 2. memory/cog: alert, oriented x 3. some gaps in memory when providing hx of treatment and other information but not formally tested. Diagnostics Vital Signs (24Hr): Vital Signs - 24 hr 02/12/23 08:35 02/12/23 16:50 Temperature 97.9 F Pulse Rate 85 78 Respiratory Rate 16 Blood Pressure 132/85 120/64 Pulse Oximetry 98 Oxygen Delivery Method Room Air BMI result Body Mass Index 29.4 Labs 02/10/23 13:56 02/11/23 07:29 Labs: Laboratory Results - last 48 hr 02/11/23 02/11/23 02/11/23 00:20 07:29 08:14 Sodium 136 Potassium 4.1 Chloride 105 Carbon Dioxide 25 Anion Gap 10 L BUN 11 Creatinine 0.72 Estim Creat Clear Calc 144.0 Estimated GFR > 60 POC Glucose 187 H 137 H Fasting Glucose 140 H Estimat Average Glucose 146 Hemoglobin A1c % 6.7 H Calcium 9.1 D Total Bilirubin 0.7 AST 21 ALT 20 Alkaline Phosphatase 80 Total Protein 6.6 Albumin 3.8 Triglycerides 203 H Cholesterol 164 LDL Cholesterol, Calc 87 HDL Cholesterol 37 L Vitamin B12 318 Folate 12.6 TSH 0.28 L 02/11/23 02/12/23 17:11 08:25 Sodium Potassium Chloride Carbon Dioxide Anion Gap BUN Creatinine Estim Creat Clear Calc Estimated GFR POC Glucose 158 H 121 H Fasting Glucose Estimat Average Glucose Hemoglobin A1c % Calcium Total Bilirubin AST ALT Alkaline Phosphatase Total Protein Albumin Triglycerides Cholesterol LDL Cholesterol, Calc HDL Cholesterol Vitamin B12 Folate TSH Imaging Radiology Impressions: ITS Impressions Chest X-Ray 02/10/23 14:07 IMPRESSION: No acute abnormality. Medications Medications Current Medications Acamprosate (Acamprosate Calcium 333 Mg Tablet.) 666 mg PO BID [facility] Last Admin: 02/12/23 09:31 Dose: 666 mg Acetaminophen (Acetaminophen 325 Mg Tablet) 650 mg PO Q6H PRN PRN Reason: Headache/Pain Mild Scale (1-3) Last Admin: 02/12/23 10:04 Dose: 650 mg Al Hydroxide/Mg Hydroxide (Magnesium Hydrox/Alum Hydrox 30 Ml Oral.Susp) 30 ml PO Q6H PRN PRN Reason: Heartburn/Nausea Clonidine HCl (Clonidine Hcl 0.1 Mg Tablet) 0.1 mg PO BEDTIME [facility]; Protocol Last Admin: 02/11/23 22:46 Dose: 0.1 mg Diltiazem HCl (Diltiazem Hcl Cd 180 Mg Cap.Er.24h) 180 mg PO DAILY [facility], [facility]; Protocol Last Admin: 02/12/23 09:31 Dose: 180 mg Famotidine (Famotidine 20 Mg Tablet) 20 mg PO BID PRN PRN Reason: heartburn Hydroxyzine HCl (Hydroxyzine Hcl 25 Mg Tablet) 25 mg PO Q6H PRN PRN Reason: Anxiety Last Admin: 02/11/23 10:00 Dose: 25 mg Lamotrigine (Lamotrigine 25 Mg Tablet) 50 mg PO BID [facility] Loratadine (Loratadine 10 Mg Tablet) 10 mg PO DAILY [facility] Last Admin: 02/12/23 09:31 Dose: 10 mg Lorazepam (Lorazepam 1 Mg Tablet) 2 mg PO Q4H PRN PRN Reason: ciwa 8-12 Last Admin: 02/12/23 16:50 Dose: 2 mg Magnesium Hydroxide (Milk Of Magnesia 30 Ml Oral.Susp) 30 ml PO DAILY PRN PRN Reason: Constipation Mirtazapine (Mirtazapine 30 Mg Tablet) 30 mg PO BEDTIME [facility] Non-Formulary Medication (Dulaglutide [Trulicity]) 0.75 mg SUBCUT QWEEK [facility] Prazosin HCl (Prazosin Hcl 1 Mg Capsule) 2 mg PO BEDTIME [facility]; Protocol Trazodone HCl (Trazodone Hcl 50 Mg Tablet) 50 mg PO BEDTIME PRN PRN Reason: Insomnia Allergies Allergies Allergy/AdvReac Type Severity Reaction Status Date / Time No Known Allergies Allergy Verified 02/10/23 13:03 [No Known Allergies*] Assessment & Plan Assessment & Plan (1) MDD (major depressive disorder): Qualifiers: Active/Remission status: currently active Major depression episode severity: moderate Major depression recurrence: recurrent Qualified Code(s): F33.1 - Major depressive disorder, recurrent, moderate Status: Acute Code(s): F32.9 - Major depressive disorder, single episode, unspecified (2) Alcohol use disorder, moderate, dependence: Status: Acute Code(s): F10.20 - Alcohol dependence, uncomplicated Plan Mr. Gonzales is a 43 year-old male with hx of MDD, alcohol and cocaine use disorder who self [place] [facility] due to increase depression and suicidal ideation in context of ongoing alcohol use, break up of relationship due to his alcohol use. Pt also reports not taking medication in past month as he missed appointment with OP psych provider. He continues to endorse passive SI. He reports wanting help/treatment for substance use as well as he sees how it is affecting his life and ability to maintain relationship. Pt describes hearing someone calling his name and shadows, mostly when he is waking up, and feels paralyzed, suspect these are hypnopompic hallucinations, which could be related to alcohol-induced narcolepsy-like symptoms. tx for these is not antipsychotics. No AH/VH during the day. We discussed risks, benefits and alternative treatment options. Pt reports he has tried several medications, thinks remeron, lamictal clonidine and prazosin most effective. He had hx of naltrexon but experienced GI side effects. He is currently on campral. 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 WIll do head CT. recommend MOCA completed. Pt started on ciwa, thiamine, folic acid. CIWA score 7. PLAN 02/12 pt is not having alcohol hallucinosis despite his report when ciwa is conducted- RN not to score as such.otherwise, no complications of alcohol withdrawal. continue tx. Reason for continued inpatient stay Substantial Risk for: harm to self Time Spent With Patient Time: Total time managing care of this patient today ____ minutes.
[2023-02-12 20:24] VITALS: BP 131/98; PULSE 100; TEMP 36.7; O2SAT 98
[2023-02-12 21:30] VITALS: BP 129/75; PULSE 88
[2023-02-12 21:34] LABS: Glucose, Whole Blood 257 mg/dL (60-115)
[2023-02-12] MEDS: lamoTRIgine 25 MG TABLET 50 MG PO (21:40)
[2023-02-12] MEDS: Prazosin HCL 1 MG CAPSULE 2 MG PO (21:40)
[2023-02-12] MEDS: cloNIDine HCL 0.1 MG TABLET PO (21:40)
[2023-02-12] MEDS: Mirtazapine 30 MG TABLET PO (21:40)
[2023-02-13 00:02] VITALS: BP 133/83; PULSE 95; O2SAT 96
[2023-02-13] MEDS: LORazepam 1 MG TABLET 2 MG PO (00:03)
--- NOTE | 2023-02-13 00:07 | PC.NURSE ---
CIWA-allowed for assessment at midnight. had to be woken up. CIWA previously was 11 at 2000 and CIWA at 0000 9. ativan 2 mg po administered as per orders. is requesting not to be woken up at 0400. ''If I'm sleeping let me sleep'' ''I will let you know if I need anything''
[2023-02-13 06:00] VITALS: BP 100/59; PULSE 93; RESP 18; TEMP 36.1; O2SAT 96
[2023-02-13] MEDS: dilTIAZem HCL CD 180 MG CAP.ER.24H PO (08:50)
[2023-02-13] MEDS: Loratadine 10 MG TABLET PO (08:50)
[2023-02-13] MEDS: Acamprosate Calcium 333 MG TABLET.DR 666 MG PO ×2 (08:50→20:18)
[2023-02-13] MEDS: lamoTRIgine 25 MG TABLET 50 MG PO ×2 (08:50→20:19)
[2023-02-13 12:48] LABS: Glucose, Whole Blood 197 mg/dL (60-115)
[2023-02-13] MEDS: LORazepam 1 MG TABLET PO ×4 (13:04→20:19)
--- NOTE | 2023-02-13 18:10 | P.PNPSI_ITS ---
Subjective Subjective Date of Service: 02/13/23 Reason For Visit: SI Interim History: seen with hospital cna. calm, cooperative. describes hypnopompic hallucinations, reassured. states the cocaine he used last was a one- off event. alcohol is his main problem. ativan taper discussed with pt. pt also reports Rx of clonidine 0.2 mg QHS with 0.1 mg daily PRn as well as prazosin 7 mg QHS. agrees to titrate meds in that direction. per staff, sleeping well. isolative, labile, tearful. Mental Status Exam Mental Status Exam Narrative: Appearance:wearing hospital gown, fair hygiene, in NAD behavior:cooperative Psychomotor:no agitation or retardation noted Speech:clear, normal rate/rhythm/volume, spontaneous TP:linear TC: no paranoia or delusions expressed Mood: depressed Affect: constricted SI: none expressed HI:none expressed VH/AH:hypnopompic hallucinations Insight/judgment:fair x 2. memory/cog: alert, oriented x 3. Diagnostics Vital Signs (24Hr): Vital Signs - 24 hr 02/12/23 20:24 02/12/23 21:30 02/13/23 00:02 Temperature 98.1 F Pulse Rate 100 88 95 Respiratory Rate Blood Pressure 131/98 H 129/75 133/83 Pulse Oximetry 98 96 Oxygen Delivery Method Room Air Room Air 02/13/23 06:00 Temperature 97.0 F Pulse Rate 93 Respiratory Rate 18 Blood Pressure 100/59 L Pulse Oximetry 96 Oxygen Delivery Method Room Air BMI result Body Mass Index 29.4 Labs 02/10/23 13:56 02/11/23 07:29 Labs: Laboratory Results - last 48 hr 02/12/23 02/12/23 02/13/23 08:25 21:28 12:37 POC Glucose 121 H 257 H 197 H Imaging Radiology Impressions: ITS Impressions Chest X-Ray 02/10/23 14:07 IMPRESSION: No acute abnormality. Medications Medications Current Medications Acamprosate (Acamprosate Calcium 333 Mg Tablet.) 666 mg PO BID [facility] Last Admin: 02/13/23 08:50 Dose: 666 mg Acetaminophen (Acetaminophen 325 Mg Tablet) 650 mg PO Q6H PRN PRN Reason: Headache/Pain Mild Scale (1-3) Last Admin: 02/12/23 10:04 Dose: 650 mg Al Hydroxide/Mg Hydroxide (Magnesium Hydrox/Alum Hydrox 30 Ml Oral.Susp) 30 ml PO Q6H PRN PRN Reason: Heartburn/Nausea Clonidine HCl (Clonidine Hcl 0.2 Mg Tablet) 0.2 mg PO BEDTIME [facility]; Protocol Clonidine HCl (Clonidine Hcl 0.1 Mg Tablet) 0.1 mg PO DAILY PRN; Protocol PRN Reason: anxiety Diltiazem HCl (Diltiazem Hcl Cd 180 Mg Cap.Er.24h) 180 mg PO DAILY [facility]; Protocol Last Admin: 02/13/23 08:50 Dose: 180 mg Famotidine (Famotidine 20 Mg Tablet) 20 mg PO BID PRN PRN Reason: heartburn Hydroxyzine HCl (Hydroxyzine Hcl 25 Mg Tablet) 25 mg PO Q6H PRN PRN Reason: Anxiety Last Admin: 02/11/23 10:00 Dose: 25 mg Lamotrigine (Lamotrigine 25 Mg Tablet) 50 mg PO BID [facility] Last Admin: 02/13/23 08:50 Dose: 50 mg Loperamide HCl (Loperamide Hcl 2 Mg Capsule) 2 mg PO Q4H PRN PRN Reason: Diarrhea Loratadine (Loratadine 10 Mg Tablet) 10 mg PO DAILY [facility] Last Admin: 02/13/23 08:50 Dose: 10 mg Lorazepam (Lorazepam 1 Mg Tablet) 1 mg PO TID@1300,1600,1900 [facility] Stop: 02/13/23 19:01 Last Admin: 02/13/23 15:57 Dose: 1 mg Lorazepam (Lorazepam 1 Mg Tablet) 1 mg PO BEDTIME [facility] Stop: 02/13/23 21:01 Lorazepam (Lorazepam 1 Mg Tablet) 1 mg PO TID [facility] Stop: 02/14/23 21:01 Lorazepam (Lorazepam 1 Mg Tablet) 1 mg PO BID [facility] Stop: 02/16/23 09:01 Magnesium Hydroxide (Milk Of Magnesia 30 Ml Oral.Susp) 30 ml PO DAILY PRN PRN Reason: Constipation Mirtazapine (Mirtazapine 30 Mg Tablet) 30 mg PO BEDTIME [facility] Last Admin: 02/12/23 21:40 Dose: 30 mg Non-Formulary Medication (Dulaglutide [Trulicity]) 0.75 mg SUBCUT Q7D [facility] Last Admin: 02/13/23 14:43 Dose: Not Given Prazosin HCl (Prazosin Hcl 1 Mg Capsule) 3 mg PO BEDTIME [facility]; Protocol Trazodone HCl (Trazodone Hcl 50 Mg Tablet) 50 mg PO BEDTIME PRN PRN Reason: Insomnia Allergies Allergies Allergy/AdvReac Type Severity Reaction Status Date / Time No Known Allergies Allergy Verified 02/10/23 13:03 [No Known Allergies*] Assessment & Plan Assessment & Plan (1) MDD (major depressive disorder): Qualifiers: Active/Remission status: currently active Major depression episode severity: moderate Major depression recurrence: recurrent Qualified Code(s): F 33.1 - Major depressive disorder, recurrent, moderate Status: Acute Code(s): F32.9 - Major depressive disorder, single episode, unspecified (2) Alcohol use disorder, moderate, dependence: Status: Acute Code(s): F10.20 - Alcohol dependence, uncomplicated Plan Mr. Gonzales is a 43 year-old male with hx of MDD, alcohol and cocaine use disorder who self presented [place] [facility] due to increase depression and suicidal ideation in context of ongoing alcohol use, break up of relationship due to his alcohol use. Pt also reports not taking medication in past month as he missed appointment with OP psych provider. He continues to endorse passive SI. He reports wanting help/treatment for substance use as well as he sees how it is affecting his life and ability to maintain relationship. Pt describes hearing someone calling his name and shadows, mostly when he is waking up, and feels paralyzed, suspect these are hypnopompic hallucinations, which could be related to alcohol-induced narcolepsy-like symptoms. tx for these is not antipsychotics. No AH/VH during the day. We discussed risks, benefits and alternative treatment options. Pt reports he has tried several medications, thinks remeron, lamictal clonidine and prazosin most effective. He had hx of naltrexon but experienced GI side effects. He is currently on campral. 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 WIll do head CT. recommend MOCA completed. Pt started on ciwa, thiamine, folic acid. CIWA score 7. PLAN 02/12 pt is not having alcohol hallucinosis despite his report when ciwa is conducted- RN not to score as such.otherwise, no complications of alcohol withdrawal. continue tx. 02/13: hypnopompic hallucinations; not psychotic. reassured. ativan taper started, [facility]. increase clonidine to 0.2 mg QHS with 0.1 mg daily PRN, which was his outpt regimen. increase prazosin to 3 mg QHS with target 7 mg, his prior outpt regimen. Reason for continued inpatient stay Substantial Risk for: inability to function and rapid decompensation Time Spent With Patient Time: Total time managing care of this patient today __35__ minutes.
[2023-02-13 20:15] VITALS: BP 140/84; PULSE 88; TEMP 37; O2SAT 95
[2023-02-13] MEDS: Prazosin HCL 1 MG CAPSULE 3 MG PO (20:18)
[2023-02-13] MEDS: Mirtazapine 30 MG TABLET PO (20:19)
[2023-02-13] MEDS: cloNIDine HCL 0.2 MG TABLET PO (20:19)
[2023-02-14 08:36] LABS: Glucose, Whole Blood 137 mg/dL (60-115)
[2023-02-14 09:17] VITALS: BP 149/89; PULSE 101; RESP 18; TEMP 36.2; O2SAT 99
[2023-02-14] MEDS: LORazepam 1 MG TABLET PO ×3 (09:18→20:30)
[2023-02-14] MEDS: Acamprosate Calcium 333 MG TABLET.DR 666 MG PO ×3 (09:18→20:30)
[2023-02-14] MEDS: dilTIAZem HCL CD 180 MG CAP.ER.24H PO (09:18)
[2023-02-14] MEDS: Loratadine 10 MG TABLET PO (09:18)
[2023-02-14] MEDS: lamoTRIgine 25 MG TABLET 50 MG PO ×2 (09:18→20:29)
--- NOTE | 2023-02-14 16:09 | HO.PSYCHPN ---
Subjective Subjective Date of Service: 02/14/23 Reason For Visit: SI Interim History: seen with solar project manager and SW. reports he slept well, no nightmares. nevertheless wants his prazosin dosing to be increased. also willing to have campral dosing increased to TID. endorses sweats, nausea/diarrhea, anxiety attacks. educated re ativan taper for the next 2 days. not wanting CSS, just wanting to DC home after admission. Mental Status Exam Mental Status Exam Narrative: Appearance:wearing hospital gown, fair hygiene, in NAD behavior:cooperative Psychomotor:no agitation or retardation noted Speech:clear, normal rate/rhythm/volume, spontaneous TP:linear TC: no paranoia or delusions expressed Mood: depressed Affect: constricted SI: none expressed HI: none expressed VH/AH: none expressed Insight/judgment:fair x 2. memory/cog: alert, oriented x 3. Diagnostics Vital Signs (24Hr): Vital Signs - 24 hr 02/13/23 20:15 02/14/23 09:17 Temperature 98.6 F 97.1 F Pulse Rate 88 101 H Respiratory Rate 18 Blood Pressure 140/84 H 149/89 H Pulse Oximetry 95 99 Oxygen Delivery Method Room Air Room Air BMI result Body Mass Index 29.4 Labs 02/10/23 13:56 02/11/23 07:29 Labs: Laboratory Results - last 48 hr 02/12/23 02/13/23 02/14/23 21:28 12:37 08:17 POC Glucose 257 H 197 H 137 H Imaging Radiology Impressions: ITS Impressions Chest X-Ray 02/10/23 14:07 IMPRESSION: No acute abnormality. Medications Medications Current Medications Acamprosate (Acamprosate Calcium 333 Mg Tablet.) 666 mg PO TID [facility] Last Admin: 02/14/23 15:32 Dose: 666 mg Acetaminophen (Acetaminophen 325 Mg Tablet) 650 mg PO Q6H PRN PRN Reason: Headache/Pain Mild Scale (1-3) Last Admin: 02/12/23 10:04 Dose: 650 mg Al Hydroxide/Mg Hydroxide (Magnesium Hydrox/Alum Hydrox 30 Ml Oral.Susp) 30 ml PO Q6H PRN PRN Reason: Heartburn/Nausea Clonidine HCl (Clonidine Hcl 0.2 Mg Tablet) 0.2 mg PO BEDTIME [facility]; Protocol Last Admin: 02/13/23 20:19 Dose: 0.2 mg Clonidine HCl (Clonidine Hcl 0.1 Mg Tablet) 0.1 mg PO DAILY PRN; Protocol PRN Reason: anxiety Diltiazem HCl (Diltiazem Hcl Cd 180 Mg Cap.Er.24h) 180 mg PO DAILY [facility]; Protocol Last Admin: 02/14/23 09:18 Dose: 180 mg Famotidine (Famotidine 20 Mg Tablet) 20 mg PO BID PRN PRN Reason: heartburn Hydroxyzine HCl (Hydroxyzine Hcl 25 Mg Tablet) 25 mg PO Q6H PRN PRN Reason: Anxiety Last Admin: 02/11/23 10:00 Dose: 25 mg Lamotrigine (Lamotrigine 25 Mg Tablet) 50 mg PO BID [facility] Last Admin: 02/14/23 09:18 Dose: 50 mg Loperamide HCl (Loperamide Hcl 2 Mg Capsule) 2 mg PO Q4H PRN PRN Reason: Diarrhea Loratadine (Loratadine 10 Mg Tablet) 10 mg PO DAILY [facility] Last Admin: 02/14/23 09:18 Dose: 10 mg Lorazepam (Lorazepam 1 Mg Tablet) 1 mg PO TID [facility] Stop: 02/14/23 21:01 Last Admin: 02/14/23 15:33 Dose: 1 mg Lorazepam (Lorazepam 1 Mg Tablet) 1 mg PO BID [facility] Stop: 02/16/23 09:01 Magnesium Hydroxide (Milk Of Magnesia 30 Ml Oral.Susp) 30 ml PO DAILY PRN PRN Reason: Constipation Mirtazapine (Mirtazapine 30 Mg Tablet) 30 mg PO BEDTIME [facility] Last Admin: 02/13/23 20:19 Dose: 30 mg Non-Formulary Medication (Dulaglutide [Trulicity]) 0.75 mg SUBCUT Q7D [facility] Last Admin: 02/13/23 14:43 Dose: Not Given Prazosin HCl (Prazosin Hcl 1 Mg Capsule) 4 mg PO BEDTIME [facility]; Protocol Trazodone HCl (Trazodone Hcl 50 Mg Tablet) 50 mg PO BEDTIME PRN PRN Reason: Insomnia Allergies Allergies Allergy/AdvReac Type Severity Reaction Status Date / Time No Known Allergies Allergy Verified 02/10/23 13:03 [No Known Allergies*] Assessment & Plan Assessment & Plan (1) MDD (major depressive disorder): Qualifiers: Active/Remission status: currently active Major depression episode severity: moderate Major depression recurrence: recurrent Qualified Code(s): F33.1 - Major depressive disorder, recurrent, moderate Status: Acute Code(s): F32.9 - Major depressive disorder, single episode, unspecified (2) Alcohol use disorder, moderate, dependence: Status: Acute Code(s): F10.20 - Alcohol dependence, uncomplicated Plan Mr. Gonzales is a 43 year-old male with hx of MDD, alcohol and cocaine use disorder who self presented [place] [facility] [place] due to increase depression and suicidal ideation in context of ongoing alcohol use, break up of relationship due to his alcohol use. Pt also reports not taking medication in past month as he missed appointment with OP psych provider. He continues to endorse passive SI. He reports wanting help/treatment for substance use as well as he sees how it is affecting his life and ability to maintain relationship. Pt describes hearing someone calling his name and shadows, mostly when he is waking up, and feels paralyzed, suspect these are hypnopompic hallucinations, which could be related to alcohol-induced narcolepsy-like symptoms. tx for these is not antipsychotics. No AH/VH during the day. We discussed risks, benefits and alternative treatment options. Pt reports he has tried several medications, thinks remeron, lamictal clonidine and prazosin most effective. He had hx of naltrexon but experienced GI side effects. He is currently on campral. He appear to have difficulty providing information rather treatment and other information- wonder some degree of memory/cog impairment due to shelter use of alcohol. WIll do head CT. recommend MOCA completed. Pt started on ciwa, thiamine, folic acid. CIWA score 7. PLAN 02/12 pt is not having alcohol hallucinosis despite his report when ciwa is conducted- RN not to score as such.otherwise, no complications of alcohol withdrawal. continue tx. 02/13: hypnopompic hallucinations; not psychotic. reassured. ativan taper started, DC CIWA. increase clonidine to 0.2 mg QHS with 0.1 mg daily PRN, which was his outpt regimen. increase prazosin to 3 mg QHS with target 7 mg, his prior outpt regimen. 02/14: slept better last night. increase HS prazosin to 4 mg. increase campral to 666 TID. continue ativan taper. doesn't want CSS, discharge to usual outpt Tx after detox and stabilization. Reason for continued inpatient stay Substantial Risk for: inability to function and rapid decompensation Time Spent With Patient Time: Total time managing care of this patient today __35__ minutes.
--- NOTE | 2023-02-14 19:58 | MHC.RECOVSUP ---
? Reason for consult:ETOH o? Current location:[facility]? o? Identified substance use concern:? -? Support ?? Intervention: o? Community resources provided ? Plan:Outpatient services (recovery coordinator) ? Additional information:[facility] met with this pt and discussed treatment options, pt stated he works and just needs outpatient services, RC provided pt with recovery resources and contact information to complete referral for a recovery coordinator.
[2023-02-14 20:17] LABS: Glucose, Whole Blood 367 mg/dL (60-115)
[2023-02-14] MEDS: cloNIDine HCL 0.2 MG TABLET PO (20:29)
[2023-02-14] MEDS: Prazosin HCL 1 MG CAPSULE 4 MG PO (20:29)
[2023-02-14] MEDS: Mirtazapine 30 MG TABLET PO (20:30)
[2023-02-14 22:19] VITALS: BP 142/88; PULSE 103; RESP 18; TEMP 36.4; O2SAT 97
[2023-02-15 10:00] VITALS: BP 138/90; PULSE 104; RESP 18; TEMP 36.2; O2SAT 98
[2023-02-15] MEDS: Acamprosate Calcium 333 MG TABLET.DR 666 MG PO ×3 (10:36→20:45)
[2023-02-15] MEDS: LORazepam 1 MG TABLET PO ×2 (10:36→20:46)
[2023-02-15] MEDS: dilTIAZem HCL CD 180 MG CAP.ER.24H PO (10:36)
[2023-02-15] MEDS: Loratadine 10 MG TABLET PO (10:36)
[2023-02-15] MEDS: lamoTRIgine 25 MG TABLET 50 MG PO ×2 (10:36→20:46)
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
[2023-02-15 20:40] VITALS: BP 151/88; PULSE 103; RESP 18; TEMP 36.2; O2SAT 96
[2023-02-15] MEDS: Prazosin HCL 1 MG CAPSULE 4 MG PO (20:45)
[2023-02-15] MEDS: cloNIDine HCL 0.2 MG TABLET PO (20:46)
[2023-02-15] MEDS: Mirtazapine 30 MG TABLET PO (20:46)
[2023-02-16 06:00] VITALS: BP 136/88; PULSE 88; RESP 16; TEMP 36.3; O2SAT 100
[2023-02-16] MEDS: Acamprosate Calcium 333 MG TABLET.DR 666 MG PO (08:56)
[2023-02-16] MEDS: lamoTRIgine 25 MG TABLET 50 MG PO (08:56)
[2023-02-16] MEDS: dilTIAZem HCL CD 180 MG CAP.ER.24H PO (08:56)
[2023-02-16] MEDS: LORazepam 1 MG TABLET PO (08:56)
[2023-02-16] MEDS: Loratadine 10 MG TABLET PO (08:57)
--- NOTE | 2023-02-16 09:39 | PC.NURSE ---
Dylon is alert, fully oriented, pleasant and cooperative with discharge process. He denies ideation, plan or intent to harm self of others. He verbalizes understanding of discharge instructions including medications and appointments. He denies current physical complaint
== END 2023-02-16 10:39 | disposition home or self-care (01) | DRG 885 ==
LOC: HO.ED 17:30 → HO.PADLT16 23:20
PROVIDERS: Emergency Medicine Emergency Medical Services; Admitting Provider Social Worker; Emergency Provider Emergency Medicine Emergency Medical Services; Visit Provider Psychiatry & Neurology Psychiatry
DX: F33.1 Major depressive disorder, recurrent, moderate (principal); R45.851 Suicidal ideations; E78.00 Pure hypercholesterolemia, unspecified; I10 Essential (primary) hypertension; F10.20 Alcohol dependence, uncomplicated; Z20.822 Contact with and (suspected) exposure to COVID-19; Z79.899 Other long term (current) drug therapy
CPT/HCPCS: 36415; 71046; 80053; 80061; 80307; 81003; 82550; 82607; 82746; 82947; 83036; 83690; 84443; 84484; 85025; 85610; 85730; 87635; 93005; 99285; S9485

== ENCOUNTER → 2023-02-10 23:01 | Outpatient (BNV) | payer OTHER, SELFPAY | PROVIDERS: Admitting Provider Social Worker; Emergency Provider Emergency Medicine Emergency Medical Services; Visit Provider Social Worker | DX: F33.1 Major depressive disorder, recurrent, moderate (principal); F10.20 Alcohol dependence, uncomplicated | CPT/HCPCS: 90792; 99231; 99232; 99239 ==

== ENCOUNTER 2023-02-18 20:30 | Emergency (ER) | payer OTHER, SELFPAY ==
--- NOTE | ~2023-02-18 | XR_ITS ---
EXAMINATION: XR ANKLE, RIGHT XR FOOT, RIGHT CLINICAL INFORMATION: Pain. COMPARISON: None available. TECHNIQUE: AP, lateral, and mortise views of the right ankle. AP, lateral, and oblique views of the right foot. FINDINGS: Bony alignment and mineralization are normal. The ankle mortise is intact. No fracture, dislocation or joint effusion is seen. Boehler's angle is normal. There is a posterior calcaneal spur. No focal soft tissue swelling, gas or foreign body is seen. XR/XR foot RT min 3V IMPRESSION: 1. No fracture, dislocation or right ankle joint effusion is seen. 2. There is a moderate posterior calcaneal spur.
--- NOTE | ~2023-02-18 | XR_ITS ---
EXAMINATION: XR ANKLE, RIGHT XR FOOT, RIGHT CLINICAL INFORMATION: Pain. COMPARISON: None available. TECHNIQUE: AP, lateral, and mortise views of the right ankle. AP, lateral, and oblique views of the right foot. FINDINGS: Bony alignment and mineralization are normal. The ankle mortise is intact. No fracture, dislocation or joint effusion is seen. Boehler's angle is normal. There is a posterior calcaneal spur. No focal soft tissue swelling, gas or foreign body is seen. XR/XR ankle RT min 3V IMPRESSION: 1. No fracture, dislocation or right ankle joint effusion is seen. 2. There is a moderate posterior calcaneal spur.
[2023-02-18 20:47] VITALS: BP 145/85; PULSE 95; RESP 18; TEMP 36.8; O2SAT 96; BMI 30.7
--- NOTE | 2023-02-18 20:47 | ED.LOWEXIN ---
HPI - Extremity Injury (Lower) General Chief Complaint: Extremity Injury, Lower Stated Complaint: Right ankle injury Time Seen by Provider: 02/18/23 22:17 Source: patient Mode of arrival: ambulatory Limitations: no limitations History of Present Illness HPI Narrative: patient comes to the emergency room complaining of a right lower extremity injury. Patient states that earlier today his pain his ankle while ambulating. Patient has pain with movement. Still able to bear weight on the foot. Patient denies any other injuries Related Data Home Medications Medication Instructions Recorded Confirmed diltiazem HCl 180 mg 180 mg PO DAILY 02/10/23 02/10/23 capsule,extended release 24 hr dulaglutide 0.75 mg/0.5 mL 0.75 mg subcut QWEEK 02/10/23 02/10/23 subcutaneous pen injector ([facility]) famotidine 20 mg tablet 20 mg PO BID PRN heartburn 02/10/23 02/10/23 loratadine 10 mg tablet 10 mg PO DAILY 02/10/23 02/10/23 Previous Rx's Medication Instructions Recorded clonidine HCl 0.1 mg tablet 0.1 mg PO DAILY PRN anxiety 30 02/15/23 days #30 tabs clonidine HCl 0.2 mg tablet 0.2 mg PO BEDTIME 30 days #30 tabs 02/15/23 lamotrigine 25 mg tablet 50 mg (2 x 25 mg) PO BID 30 days 02/15/23 #120 tabs mirtazapine 30 mg tablet 30 mg PO BEDTIME 30 days #30 tabs 02/15/23 prazosin 1 mg capsule 4 mg PO BEDTIME 30 days #120 caps 02/15/23 acamprosate 333 mg tablet,delayed 666 mg (2 x 333 mg) PO TID 30 days 02/16/23 release #180 tabs ibuprofen 600 mg tablet 600 mg PO TID PRN fever or pain 02/18/23 #20 tabs Allergies Allergy/AdvReac Type Severity Reaction Status Date / Time No Known Allergies Allergy Verified 02/18/23 20:46 [No Known Allergies*] Review of Systems Review of Systems: Constitutional : No Weight loss, No Fever, No Chills, No Night Sweats, No Fatigue, No Malaise ENT/Mouth : No Hearing loss, No Ear Pain, No Nasal Congestion, No Sinus Pain, No Hoarseness, No sore throat, No Rhinorrhea, No Swallowing Difficulty Eyes: No Eye Pain, No Swelling, No Redness, No Foreign Body, No Discharge, No Vision Changes Cardiovascular : No Chest Pain, No SOB, No Dyspnea on Exertion, No Orthopnea, No Edema, No Palpitations Respiratory : No Cough, No Sputum, No Wheezing, No Smoke Exposure, No Dyspnea Gastrointestinal : No Nausea, No Vomiting, No Diarrhea, No Constipation, No abdominal Pain, No Hematochezia, No Melena Genitourinary : no irregular bleeding, No Dysuria, No Urinary Frequency, No Hematuria, No Urinary Incontinence, No Urgency, No Flank Pain, No Urinary Flow Changes, No Hesitancy Musculoskeletal : complaining of right ankle pain, no swelling, no erythema Skin : No Skin Lesions, No rash Neuro : No Weakness, No Numbness, No Paresthesias, No Loss of Consciousness, No Dizziness, No Headache Psych : No Anxiety/Panic, No Depression, No SI/HI/AH/VH, No Social Issues, Heme/Lymph: No Bruising, No Bleeding,No Lymphadenopathy Endocrine : No Polyuria, No Polydipsia, No Temperature Intolerance [facility] Past Medical History Medical History High cholesterol Asthma Hypertension Diabetes Palpitation Social History Social History Household Members: None Housing: Apartment Do you presently have visiting nurse or other home services: Yes (they come once a year) Alcohol intake: current Alcohol intake frequency: a few times a month Alcohol type: beer Patient Tobacco Use Status: Never used Tobacco Smoked in Last 30 Days: No Second Hand Smoke Exposure: No Use of substances other than those prescribed or required for medical reasons: Unknown Substance Use Type: Crack/Cocaine Advance Directives: No Advance Directives Information Provided: No service: No Sexual orientation: Straight/Heterosexual Physical Exam Vital Signs: Vital Signs: Last Vital Signs Temp 98.3 F 02/18/23 20:47 Pulse 95 02/18/23 20:47 Resp 18 02/18/23 20:47 BP 145/85 H 02/18/23 20:47 Pulse Ox 96 02/18/23 20:47 O2 Del Method Room Air 02/18/23 20:47 BMI result Body Mass Index 30.7 Const: Other: Appearance: Alert. Oriented X3. No acute distress. Eyes: Pupils equal, round and reactive to light. ENT: Pharynx normal. Neck: Normal inspection. Neck supple. No lymph nodes noted. No crepitus CVS: Normal heart rate and rhythm. Pulses normal. Normal S1 and S2 Respiratory: No respiratory distress. Breath sounds normal. No Wheezing. No rales Abdomen: Soft and nontender. No rigidity. No distention. Skin: Skin warm and dry. Normal skin color. Normal skin turgor. Extremities: No lower extremity edema. patient reports pain in the lateral malleolus on the right with movement. Patient able to bear weight, no deformity, no swelling or erythema Neuro: Oriented X 3. No motor deficit. No sensory deficit. Moving all extremities. No slurred speech. CN 2 through 12 grossly intact Psych: calm, cooperative, normal affect Course Course Course Narrative: This is an RME: Additional HPI, ROS, PE not included below will be deferred to primary provider. This is a [id number]-male, with a hx of depression, bipolar disorder, PTSD, hypertension, high cholesterol, diabetes, asthma, alcohol use disorder, cocaine use, presenting to the ER with complaints of right ankle and foot pain since today. PT states that he was moving a bench at his friends house and twisted his right ankle. He has been able to weight bear but reports pain with this. Mild TTP over lateral mallelous and over the fourth and fifth metatarsals. Plan: Xrays Medications Administered Discontinued Medications Generic Name Dose Route Start Last Admin Trade Name Freq PRN Reason Stop Dose Admin Ibuprofen 600 mg 02/18/23 22:33 02/18/23 22:42 Ibuprofen 600 Mg Tablet PO 02/18/23 22:34 600 mg ONCE ONE Administration Medical Decision Making Medical Decision Making [facility] Narrative: - my interpretation of x-rays of the foot and ankle: No fracture, normal alignment - patient giving ibuprofen in the emergency room and Jacob wrapped. Patient able to bear weight, patient Likely having a sprain. Discussed with the patient to try to keep moving his ankle as much as possible without pushing to pain -AMANDA hamilton Independent Interpretation I performed an independent interpretation of an: Plain X-Ray Radiology Impression Discussion of test interpretation with radiology: I have reviewed the radiologist's reading. Radiologist Impression: Bony alignment and mineralization are normal. The ankle mortise is intact. No fracture, dislocation or joint effusion is seen. Boehler's angle is normal. There is a posterior calcaneal spur. No focal soft tissue swelling, gas or foreign body is seen. XR/XR foot RT min 3V IMPRESSION: 1. No fracture, dislocation or right ankle joint effusion is seen. 2. There is a moderate posterior calcaneal spur. Discharge Plan Discharge Clinical Impression: Ankle sprain Patient Disposition: Home, Self-Care Instructions: Ankle Sprain (ED) Additional Instructions: Please follow-up with your primary care physician tomorrow. If you have any worsening or new symptoms, please return to the emergency room or call 911 Prescriptions: New ibuprofen 600 mg tablet 600 mg PO TID PRN (Reason: fever or pain) Qty: 20 0RF No Action diltiazem HCl 180 mg capsule,extended release 24hr 180 mg PO DAILY famotidine 20 mg tablet 20 mg PO BID PRN (Reason: heartburn) loratadine 10 mg tablet 10 mg PO DAILY Trulicity 0.75 mg/0.5 mL pen injector 0.75 mg subcut QWEEK clonidine HCl 0.1 mg Tablet 0.1 mg PO DAILY PRN (Reason: anxiety) 30 Days Qty: 30 0RF Protocol: Hold for SBP< HOLD for SBP < : 90 prazosin 1 mg Capsule 4 mg PO BEDTIME 30 Days Qty: 120 0RF Protocol: Hold for SBP< HOLD for SBP < : 90 lamotrigine 25 mg Tablet 50 mg PO BID 30 Days Qty: 120 0RF clonidine HCl 0.2 mg Tablet 0.2 mg PO BEDTIME 30 Days Qty: 30 0RF Protocol: Hold for SBP< HOLD for SBP < : 90 mirtazapine 30 mg Tablet 30 mg PO BEDTIME 30 Days Qty: 30 0RF acamprosate 333 mg Tablet,Delayed Release (Dr/Ec) 666 mg PO TID 30 Days Qty: 180 0RF
[2023-02-18] MEDS: Ibuprofen 600 MG TABLET PO (22:42)
== END 2023-02-18 23:08 | disposition home or self-care (01) ==
PROVIDERS: Emergency Provider Emergency Medicine
DX: S93.401A Sprain of unspecified ligament of right ankle, initial encounter (principal); X50.1XXA Overexertion from prolonged static or awkward postures, initial encounter; M77.31 Calcaneal spur, right foot; E11.9 Type 2 diabetes mellitus without complications; I10 Essential (primary) hypertension; E78.5 Hyperlipidemia, unspecified; Z79.85 Long-term (current) use of injectable non-insulin antidiabetic drugs; Z79.899 Other long term (current) drug therapy; Y93.9 Activity, unspecified; Y92.9 Unspecified place or not applicable; Y99.9 Unspecified external cause status
CPT/HCPCS: 73610; 73630; 99283; 99284

== ENCOUNTER 2023-05-01 11:09 | Emergency (ER) | payer OTHER, SELFPAY ==
[2023-05-01 11:23] VITALS: BP 166/105; PULSE 108; RESP 16; TEMP 36.6; O2SAT 97; BMI 31.0
--- NOTE | 2023-05-01 11:23 | ED_ITS ---
HPI - General Adult General Chief complaint: Psychiatric Symptoms Stated complaint: depression Time Seen by Provider: 05/01/23 11:46 Source: patient, RN notes reviewed and old records reviewed Mode of arrival: ambulatory History of Present Illness HPI narrative: 43-year-old male with a past medical history ETOH abuse, HLD, asthma, HTN, diabetes, presenting to the ED complaining of increased depression with SI and plan to overdose on heroin. Patient admits to ETOH abuse drinking about 12-15 beers daily and whiskey. Last drink yesterday, admits to history of hallucinations, denies withdrawal seizures. Denies HI, abdominal pain, nausea/vomiting, recent injury or fall Related Data Home Medications Medication Instructions Recorded Confirmed clonidine HCl 0.1 mg tablet 0.1 mg PO DAILY PRN anxiety 05/01/23 05/01/23 diltiazem HCl 180 mg 180 mg PO DAILY 05/01/23 05/01/23 capsule,extended release 24 hr dulaglutide 0.75 mg/0.5 mL 0.5 mg subcut QWEEK 05/01/23 05/01/23 subcutaneous pen injector (Trulicity) ibuprofen 600 mg tablet 600 mg PO TID PRN pain 05/01/23 05/01/23 prazosin 1 mg capsule (Minipress) 4 mg PO BEDTIME 05/01/23 05/01/23 rosuvastatin 20 mg tablet 20 mg PO DAILY 05/01/23 05/01/23 Allergies Allergy/AdvReac Type Severity Reaction Status Date / Time No Known Allergies Allergy Verified 05/01/23 11:23 [No Known Allergies*] Review of Systems 2 Review of Systems: Constitutional: No Fever, No Chills, No Fatigue, No Malaise ENT/Mouth:No Ear Pain, No Nasal Congestion, No sore throat, No Rhinorrhea, No Swallowing Difficulty Eyes: No Eye Pain, No Swelling, No Redness, No Vision Changes Cardiovascular: No Chest Pain, No SOB, No Dyspnea on Exertion, No Orthopnea, No Edema, No Palpitations Respiratory: No Cough, No Sputum, No Dyspnea Gastrointestinal: No Nausea, No Vomiting, No Diarrhea, No Constipation, No Abdominal pain Genitourinary: No Dysuria, No Hematuria, No Flank Pain Musculoskeletal: No joint pain, No Myalgias, No Joint Swelling Skin: No Skin Lesions, No rash Neuro: No Weakness, No Numbness, No Dizziness, No Headache Psych: No Anxiety/Panic, + Depression, + SI, No HI/AH/VH, + Social Issues Yes all other systems are reviewed and are negative Constitutional: Constitutional: Reports as per [facility] Past Medical History Attestation statement: The following information was validated with the patient. Source: old records reviewed Medical History (Updated 05/02/23 @ 14:08 by José Garcia MD) Major depressive disorder, recurrent, severe with psychotic symptoms PTSD (post-traumatic stress disorder) Alcohol use Chest pain High cholesterol Asthma Hypertension Diabetes Palpitation Social History Social History Household Members: None Housing: Apartment Do you presently have visiting nurse or other home services: Yes (they come once a year) Alcohol intake: current Alcohol intake frequency: a few times a month Alcohol type: beer and hard liquor Patient Tobacco Use Status: Never used Tobacco Smoked in Last 30 Days: Yes Second Hand Smoke Exposure: No Substance Use Type: Crack/Cocaine Advance Directives: No Advance Directives Information Provided: No Healthcare Proxy: No Guardian: No service: No Sexual orientation: Straight/Heterosexual Physical Exam ED Vital Signs: Vital Signs - 24 hr 05/02/23 15:26 05/02/23 20:24 05/02/23 21:58 Temperature 101.7 F H 99.2 F Pulse Rate 107 H 116 H Respiratory Rate 16 17 18 Blood Pressure 149/86 H 135/77 Pulse Oximetry 96 96 Oxygen Delivery Method Room Air Room Air 05/03/23 05:50 Temperature 98.6 F Pulse Rate 95 Respiratory Rate 16 Blood Pressure 129/86 Pulse Oximetry 94 Oxygen Delivery Method Room Air BMI result Body Mass Index 31.0 Const General: cooperative, no acute distress, alert and awake Orientation/consciousness: patient oriented x3 Limitations: no limitations HENMT Head: Yes normal to inspection and Yes atraumatic Ears: hearing grossly normal bilaterally General nose exam: Normal external nose present Face and sinus: Yes normal facial exam Eyes General: appearance normal, both eyes and all related structures Pupils: Equal, round and reactive pupils present EOM: EOMs intact bilaterally Neck Neck: Yes normal visual inspection and Yes no meningeal signs Resp Effort & Inspection: normal respiratory effort and no respiratory distress Auscultation: clear to auscultation bilaterally Cardio Rate: regular rate Heart sounds: S1 normal heart sound present and S2 normal heart sound present GI Inspection: Yes normal to inspection Palpation (GI): Soft to palpation, nontender, no guarding and not rigid Skin Rashes: no rashes Wounds: no wounds Neuro General: patient oriented x3, tone normal and no meningeal signs Cranial nerves: Yes CN's II-XII intact bilaterally and Yes Equal, round and reactive pupils present Gait exam (Neuro): Normal gait present Motor exam (neuro): no tremors and no fasciculations noted Extrem General: Yes normal to inspection Psych Thought content: Suicidality present, no homicidality, no hallucinations and Depressive thoughts present Course Course Course Narrative: RME performed by Marion Mallory PA-C. Patient is a 43 year old assigned male at presenting to the emergency department with worsening depression and alcoholism. Patient requesting detox, tearful in triage. Labs and swabs ordered. Patient placed back in the waiting room pending room availability and results. -1241--labs reassuring. Ethanol negative. -COVID-19 positive. Physician observation initiated at 12:43 is patient needs return to be evaluated by CARE team -1430--ED care transferred to [facility] pending UA/tox screen and CARE team consult. PRN Ativan ordered for ETOH withdrawal 07:17 Continue physician observation I assumed care of this patient from my colleague, Dr. Me Neri at 07:00 hours. Patient has been in the emergency department for 44 hours, presented with SI and use of cocaine. Labs are significant for COVID positive and is symptomatic. His urine tox screen positive for cocaine. Patient has been evaluated by the care team and is in in-patient bed search Patient will remain in the emergency department Behavioral Health Unit until disposition can be determined or until patient's symptoms improve over time. 15:13 End physician observation Patient was re-evaluated by care team and the patient denied suicidal ideation. Patient was evaluated by our recovery counselor as well and does not want further treatment at this time therefore he will be discharged home. Medications Administered Generic Name Dose Route Start Last Admin Trade Name Freq PRN Reason Stop Dose Admin Atorvastatin Calcium 80 mg 05/02/23 09:00 05/03/23 08:41 Atorvastatin Calcium 80 Mg Tablet PO 80 mg DAILY JAIDEN Administration Diltiazem HCl 180 mg 05/02/23 09:00 05/03/23 08:41 Diltiazem Hcl Cd 180 Mg Cap.Er.24h PO 180 mg DAILY JAIDEN Administration Protocol Famotidine 20 mg 05/02/23 14:14 05/02/23 20:53 Famotidine 20 Mg Tablet PO 20 mg BID PRN Administration gerd Lorazepam 1 mg 05/01/23 15:11 05/02/23 20:53 Lorazepam 1 Mg Tablet PO 1 mg Q4H PRN Administration Alcohol Withdrawal Mirtazapine 7.5 mg 05/02/23 21:00 05/02/23 20:53 Mirtazapine 7.5 Mg Tablet PO 7.5 mg BEDTIME JAIDEN Administration Prazosin HCl 4 mg 05/02/23 02:00 05/02/23 20:53 Prazosin Hcl 1 Mg Capsule PO 4 mg BEDTIME JAIDEN Administration Protocol Thiamine HCl 100 mg 05/02/23 14:15 05/03/23 08:42 Thiamine Hcl 100 Mg Tablet PO 100 mg DAILY JAIDEN Administration Discontinued Medications Generic Name Dose Route Start Last Admin Trade Name Freq PRN Reason Stop Dose Admin Acetaminophen 650 mg 05/02/23 01:48 05/02/23 01:58 Acetaminophen 325 Mg Tablet PO 05/02/23 01:49 650 mg ONCE ONE Administration Acetaminophen 975 mg 05/02/23 20:25 05/02/23 20:53 Acetaminophen 325 Mg Tablet PO 05/02/23 20:26 975 mg ONCE ONE Administration Acetaminophen 650 mg 05/03/23 08:47 05/03/23 09:07 Acetaminophen 325 Mg Tablet PO 05/03/23 08:48 650 mg ONCE ONE Administration Lorazepam 1 mg 05/01/23 14:04 05/01/23 14:21 Lorazepam 1 Mg Tablet PO 05/01/23 14:05 1 mg ONCE ONE Administration Thiamine HCl 100 mg 05/01/23 12:28 05/01/23 14:21 Thiamine Hcl 100 Mg Tablet PO 05/01/23 12:29 100 mg ONCE ONE Administration Medical Decision Making Medical Decision Making MDM Narrative: 43-year-old male with a past medical history ETOH abuse, HLD, asthma, HTN, diabetes, presenting to the ED complaining of increased depression with SI and plan to overdose on heroin. On exam hypertensive, tachycardic, NAD, no tongue fasciculation or tremor appreciated. Abdomen soft/nontender. No evidence of trauma. Concern for polysubstance abuse & depression. No evidence of withdrawal at this time Plan: Labs, tox screen, CARE team consult. Please refer to course for remaining clinical decision making, interpretation of labs/imaging results, and discussions with consultants and/or family members. Differential Diagnosis Differential Diagnoses: The differential diagnosis associated with the presentation includes As above Admission/Observation Consideration of admission/observation: Escalation of care including admission/observation considered Consult Healthcare Provider Management of the patient was discussed with: Behavioral Health Provider Lab Data MDM Lab Attestation statement: I reviewed the patient's lab results. 05/01/23 12:11 05/01/23 12:11 Labs: Lab Results 05/01/23 05/01/23 Range/Units 12:11 16:36 WBC 10.9 H (4.8-10.8) X10*3/uL RBC 4.96 (4.60-5.80) X10*6/uL Hgb 14.5 (14.0-18.0) g/dl Hct 40.9 L (42.0-52.0) % MCV 82.5 (80.0-98.0) fL MCH 29.2 (27.0-33.0) pg MCHC 35.5 (31.0-36.0) g/dl RDW 11.7 (11.0-16.0) % Plt Count 314 (160-400) X10*3/uL MPV 9.7 (9.4-12.4) fL Immature Gran % (Auto) 0.2 (0.0-0.4) % Neut % (Auto) 73.5 H (45-73) % Lymph % (Auto) 15.8 L (20-40) % [place] % (Auto) 8.2 (2-11) % Eos % (Auto) 1.7 (0-4) % Baso % (Auto) 0.6 (0-2) % Lymph # (Auto) 1.7 (1.2-4.9) X10*3/uL [place] # (Auto) 0.9 (0.1-1.2) X10*3/uL Eos # (Auto) 0.2 (0.0-0.4) X10*3/uL Baso # (Auto) 0.1 (0.0-0.2) X10*3/uL Abs Immat Gran (auto) 0.02 (0.00-0.03) X10*3/uL Absolute Neuts (auto) 8.0 (2.0-8.3) x10*3/uL Absolute Nucleated RBC 0.000 (0.0-0.012) X10*3/uL Nucleated RBC % (auto) 0.0 (0.0-0.2) /100WBC Sodium 138 (135-145) mmol/L Potassium 3.8 (3.3-5.1) mmol/L Chloride 104 (96-108) mmol/L Carbon Dioxide 26 (22-29) mmol/L Anion Gap 12 (12-20) BUN 9 (9-16) mg/dL Creatinine 0.81 (0.5-1.4) mg/dL Estim Creat Clear Calc 131.1 Estimated GFR > 60 Random Glucose 127 H (60-115) mg/dL Calcium 9.3 (8.4-10.2) mg/dL Magnesium 1.7 (1.6-2.6) mg/dL Total Bilirubin 1.0 (0.0-1.0) mg/dL AST 24 (5-37) U/L ALT 25 (0-40) U/L Alkaline Phosphatase 86 (39-117) U/L Total Protein 7.7 (6.5-8.0) g/dL Albumin 4.5 (3.5-5.0) g/dL Lipase 18 (8-78) U/L Urine Color Yellow Urine Appearance Clear Urine pH 6.0 (5.0-9.0) Ur Specific Wanda 1.015 (1.005-1.025) Urine Protein Negative (Neg-Trace) mg/dL Urine Glucose (UA) Negative (Negative) mg/dL Urine Ketones Negative (Negative) mg/dL Urine Blood Negative (Negative) Urine Nitrite Negative (Negative) Ur Leukocyte Esterase Negative (Negative) Salicylates < 5.0 L (15-30) mg/dL Urine Opiates Screen Not Detected (Not Detect) Urine Fentanyl Screen Not Detected (Not Detect) Acetaminophen < 3 (<30) mcg/mL Ur Barbiturates Screen Not Detected (Not Detect) Ur Phencyclidine Scrn Not Detected (Not Detect) Ur Amphetamines Screen Not Detected (Not Detect) U Benzodiazepines Scrn Not Detected (Not Detect) Urine Cocaine Screen POSITIVE H (Not Detect) U Marijuana (THC) Screen Not Detected (Not Detect) Ethyl Alcohol < 10 mg/dL COVID-19 (DARIN) Positive A (Negative) COVID-19 Clin Com See Note External Record Review External record reviewed: Inpatient record, Office record, Outpatient record, Prior outpatient labs, Prior outpatient radiology, Primary care record and Outside ED record Tests considered The following testing was considered but not selected: As above Chronic Conditions Patient?s care impacted by: Other Social Determinants Patient?s care significantly limited by Social Determinants of Health including: Low income, Alcoholism and drug addiction in family and Problems related to primary support group Discharge Plan Discharge Clinical Impression: COVID-19, Suicidal thoughts, Alcohol abuse, Cocaine abuse Patient Disposition: Home, Self-Care Additional Instructions: Your evaluated by our care team. Please follow their instructions Were followed by our recovery counselor, please follow their instructions. Continue taking medications as prescribed by your providers. Follow-up with your doctor in 2 days. Please return to the emergency department if your symptoms get worse or if you develop any symptoms that are concerning to you. Prescriptions: No Action clonidine HCl 0.1 mg tablet 0.1 mg PO DAILY PRN (Reason: anxiety) diltiazem HCl 180 mg capsule,extended release 24hr 180 mg PO DAILY prazosin [Minipress] 1 mg capsule 4 mg PO BEDTIME ibuprofen 600 mg tablet 600 mg PO TID PRN (Reason: pain) rosuvastatin 20 mg tablet 20 mg PO DAILY Trulicity 0.75 mg/0.5 mL pen injector 0.5 mg subcut QWEEK Interventions: [place]-Suicide Risk Severity Scale Last Done: 05/03/23 08:45
--- NOTE | 2023-05-01 11:23 | ECG_ITS ---
Test Reason : check qt interval Blood Pressure : / mmHG Vent. Rate : 092 BPM Atrial Rate : 092 BPM P-R Int : 152 ms QRS Dur : 068 ms QT Int : 344 ms P-R-T Axes : 045 023 013 degrees QTc Int : 425 ms Normal sinus rhythm Normal ECG When compared with ECG of 10-FEB-2023 13:18, No significant change was found Referred By: Marion Mallory Electronically Signed By:ROBBIE LINARES
[2023-05-01 12:15] LABS: MANUAL DIFF FLAG NO
[2023-05-01 12:19] LABS: Basophils Absolute Auto 0.1 X10*3/uL (0.0-0.2); Basophils Percent Auto 0.6 % (0-2); Eosinophils Absolute Auto 0.2 X10*3/uL (0.0-0.4); Eosinophils Percent Auto 1.7 % (0-4); Hematocrit 40.9 % (42.0-52.0); Hemoglobin 14.5 g/dl (14.0-18.0); Imm Gran Abs Auto 0.02 X10*3/uL (0.00-0.03); Imm Gran Pct Auto 0.2 % (0.0-0.4); Lymphocytes Absolute Auto 1.7 X10*3/uL (1.2-4.9); Lymphocytes Percent Auto 15.8 % (20-40); Mean Corpuscular HGB Conc 35.5 g/dl (31.0-36.0); Mean Corpuscular Hemoglobin 29.2 pg (27.0-33.0); Mean Corpuscular Volume 82.5 fL (80.0-98.0); Mean Platelet Volume 9.7 fL (9.4-12.4); Monocytes Absolute Auto 0.9 X10*3/uL (0.1-1.2); Monocytes Percent Auto 8.2 % (2-11); Neutrophils Percent Auto 73.5 % (45-73); Platelet Count 314 X10*3/uL (160-400); Red Blood Count 4.96 X10*6/uL (4.60-5.80); Red Cell Distribution Width 11.7 % (11.0-16.0); White Blood Count 10.9 X10*3/uL (4.8-10.8)
--- NOTE | 2023-05-01 12:22 | MHC.RECOVSUP ---
Met with pt in ED22H who is here for psychiatric and SALINAS. Pt reports he has been drinking 10-15 beers and 5 mixed drinks a day and has been in treatment before but cannot remember when or where it was. At this time pt is reporting he needs help with mental health and is endorsing SI stating he will find heroin and intentionally overdose. Care team has been informed to potentially start a dual bed search.
[2023-05-01 12:35] LABS: Acetaminophen LAB < 3 mcg/mL (<30); Alanine Aminotransferase 25 U/L (0-40); Albumin Level 4.5 g/dL (3.5-5.0); Alkaline Phosphatase 86 U/L (39-117); Anion Gap 12 (12-20); Aspartate Amino Transferase 24 U/L (5-37); Blood Urea Nitrogen 9 mg/dL (9-16); Calcium 9.3 mg/dL (8.4-10.2); Carbon Dioxide 26 mmol/L (22-29); Chloride 104 mmol/L (96-108); Creatinine Clr Calc Pharmacy 131.1; Estimated Glomerular Filt Rate > 60; Ethanol < 10 mg/dL; Glucose Random 127 mg/dL (60-115); Lipase 18 U/L (8-78); Magnesium 1.7 mg/dL (1.6-2.6); Potassium 3.8 mmol/L (3.3-5.1); Salicylate < 5.0 mg/dL (15-30); Sodium 138 mmol/L (135-145); Total Protein 7.7 g/dL (6.5-8.0)
[2023-05-01 12:37] LABS: COVID-19 Test Positive (Negative); IDNOW Serial# BCCEAD1C
--- NOTE | 2023-05-01 13:32 | PC.NURSE ---
given lunch. 1:1 at bedside. no distress. reports si w/o intent at this moment
[2023-05-01 13:39] VITALS: BP 153/81; PULSE 110; RESP 20; O2SAT 96
--- NOTE | 2023-05-01 14:06 | PC.NURSE ---
val siddiqi aware ciwa 6- ordering ativan. resting. 1:1 present
--- NOTE | 2023-05-01 14:06 | PC.NURSE ---
val siddiqi also aware bp elev.
[2023-05-01] MEDS: LORazepam 1 MG TABLET PO (14:21)
[2023-05-01] MEDS: Thiamine HCL 100 MG TABLET PO (14:21)
[2023-05-01 15:29] VITALS: BP 156/94; PULSE 90; RESP 20; O2SAT 96
[2023-05-01 16:00] VITALS: RESP 18
--- NOTE | 2023-05-01 16:43 | PC.NURSE ---
PT moved to the POD from the main ED. Covid + placed in room 1 with door closed. CIWA 3. Pleasant. Provided UA when arrived. Passive SI but safe while in the hospital.
[2023-05-01 16:44] LABS: Appearance Urine Clear; Color Urine Yellow; Glucose Urine UA Negative (Negative); Leukocyte Esterase Urine Negative (Negative); Nitrite Urine Negative (Negative); Specific Gravity - Urine 1.015 (1.005-1.025); Urine Blood Negative (Negative); Urine Ketones Negative (Negative); Urine Protein Negative (Neg-Trace)
[2023-05-01 16:52] LABS: Amphetamine Screen Urine Not Detected (Not Detect); Barbiturates, Urine Not Detected (Not Detect); Benzodiazepines Screen Urine Not Detected (Not Detect); Cannabinoid Screen Urine Not Detected (Not Detect); Cocaine Screen Urine POSITIVE (Not Detect); Fentanyl, urine Not Detected (Not Detect); Opiate Screen Urine Not Detected (Not Detect); Phencyclidine Screen Urine Not Detected (Not Detect)
--- NOTE | 2023-05-01 19:13 | PC.NURSE ---
patient appears to be resting at present respirations are even and unlabored patient appears in no distress
[2023-05-02] MEDS: Acetaminophen 325 MG TABLET 650 MG PO (01:58)
[2023-05-02] MEDS: LORazepam 1 MG TABLET PO ×2 (01:58→20:53)
[2023-05-02] MEDS: Prazosin HCL 1 MG CAPSULE 4 MG PO ×2 (01:59→20:53)
--- NOTE | 2023-05-02 08:15 | PC.NURSE ---
REPORT RECEIVED FROM CHACHA BAIRES. PT IS SLEEPING RESP EVEN AND UNLABORED.
[2023-05-02 09:11] VITALS: RESP 16
[2023-05-02] MEDS: dilTIAZem HCL CD 180 MG CAP.ER.24H PO (12:11)
[2023-05-02] MEDS: Atorvastatin Calcium 80 MG TABLET PO (12:11)
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
--- NOTE | 2023-05-02 15:24 | PC.NURSE ---
PT in bed resting for most of this shift. Covid + but denies symptoms other then feeling tired . Does endorse SI but verbalizes feeling safe while in the hospital. Compliant with scheduled medications. Appetite fair. No behavioral concerns. Ambulates well.
[2023-05-02 15:26] VITALS: RESP 16
[2023-05-02] MEDS: Thiamine HCL 100 MG TABLET PO (16:15)
--- NOTE | 2023-05-02 19:12 | PC.NURSE ---
Assumed care of pt. Py lying on stretcher, eyes closed, respirations even and unlabored. No acute distress at this time. Pt remains under constant observation for safety. Continuing plan of care with inpt bed search.
[2023-05-02 20:24] VITALS: BP 149/86; PULSE 107; RESP 17; TEMP 38.7; O2SAT 96
[2023-05-02] MEDS: Mirtazapine 7.5 MG TABLET PO (20:53)
[2023-05-02] MEDS: Famotidine 20 MG TABLET PO (20:53)
[2023-05-02] MEDS: Acetaminophen 325 MG TABLET 975 MG PO (20:53)
[2023-05-02 21:58] VITALS: BP 135/77; PULSE 116; RESP 18; TEMP 37.3; O2SAT 96
--- NOTE | 2023-05-02 23:17 | PC.NURSE ---
Pt remains lying on stretcher, eyes closed, respirations even and unlabored, no acute distress. Continuing plan of care.
--- NOTE | 2023-05-03 03:48 | PC.NURSE ---
Pt remains lying on stretcher, eyes closed, respirations even and unlabored, no acute distress.
[2023-05-03 05:50] VITALS: BP 129/86; PULSE 95; RESP 16; TEMP 37; O2SAT 94
--- NOTE | 2023-05-03 08:05 | MHC.CARE ---
Statewide bedsearch conducted- unfortunately no beds are available to pt due to being covid+, RAD Team will continue bedsearch tomorrow if deemed appropriate
[2023-05-03] MEDS: dilTIAZem HCL CD 180 MG CAP.ER.24H PO (08:41)
[2023-05-03] MEDS: Atorvastatin Calcium 80 MG TABLET PO (08:41)
[2023-05-03] MEDS: Thiamine HCL 100 MG TABLET PO (08:42)
--- NOTE | 2023-05-03 08:48 | PC.NURSE ---
resting quietly in room, stating he is having some pain in his chest associated with coughing - Tylenol ordered. offers no other complaints at this time, no signs/symptoms of distress. medicated per the MAR
[2023-05-03] MEDS: Acetaminophen 325 MG TABLET 650 MG PO (09:07)
--- NOTE | 2023-05-03 09:11 | PC.NURSE ---
oral temperature obtained - 99.0. provided with tylenol for the chest wall pain
== END 2023-05-03 15:54 | disposition home or self-care (01) ==
PROVIDERS: Physician Assistant; Physician Assistant Medical; Emergency Provider Emergency Medicine Emergency Medical Services
DX: F33.1 Major depressive disorder, recurrent, moderate (principal); U07.1 COVID-19; F14.90 Cocaine use, unspecified, uncomplicated; F11.10 Opioid abuse, uncomplicated; F10.20 Alcohol dependence, uncomplicated; F43.10 Post-traumatic stress disorder, unspecified; R45.851 Suicidal ideations; Y90.0 Blood alcohol level of less than 20 mg/100 ml; Z79.899 Other long term (current) drug therapy
CPT/HCPCS: 36415; 80053; 80143; 80179; 80307; 81003; 83690; 83735; 85025; 87635; 93005; 99285; S9485

== ENCOUNTER → 2023-05-01 11:23 | Outpatient (BNV) | payer OTHER, SELFPAY | PROVIDERS: Emergency Provider Emergency Medicine; Visit Provider Internal Medicine | DX: R07.9 Chest pain, unspecified (principal) | CPT/HCPCS: 93010 ==

== ENCOUNTER → 2023-05-01 11:44 | Outpatient (BNV) | payer OTHER, SELFPAY | PROVIDERS: Emergency Provider Emergency Medicine; Visit Provider Psychiatry & Neurology Psychiatry | DX: F33.3 Major depressive disorder, recurrent, severe with psychotic symptoms (principal); F10.20 Alcohol dependence, uncomplicated; F43.11 Post-traumatic stress disorder, acute; F14.90 Cocaine use, unspecified, uncomplicated | CPT/HCPCS: 99283 ==

== ENCOUNTER 2024-01-30 10:52 | Emergency (ER) | payer OTHER, SELFPAY ==
[2024-01-30 10:55] VITALS: BP 137/80; PULSE 87; RESP 19; TEMP 36.9; O2SAT 98; BMI 30.4
--- NOTE | 2024-01-30 10:58 | ED.GENADULT ---
HPI - General Adult General Chief complaint: Upper Respiratory Symptoms Stated complaint: Body aches Time Seen by Provider: 01/30/24 11:18 Source: patient and RN notes reviewed Mode of arrival: ambulatory Limitations: no limitations History of Present Illness ED Provider: Arlene Farrell PA-C HPI narrative: This is a 43-year-old male, with a history of MDD, PTSD, hyperlipidemia, asthma, diabetes, who presents emergency department who presents emergency department with complaints of cough, fever, and body aches since yesterday. Patient states that he also has had a slight cough. Patient denies any chest pain, shortness breath, palpitations, abdominal pain, or vomiting. He states that he had 1 episode of diarrhea in the department today. Denies any bloody or black stool. Patient states that yesterday he states area of redness/abscess to his right thumb starting yesterday. He states that he tried popping this and noticed some drainage, from this wound. He is right-handed. Denies IVDA. No other Concerns at this time. MD complaint: Cough, body aches, fevers, right thumb redness Onset (ago): day(s) Radiation: non-radiation Relieving factors: none Exacerbating factors: none Associated symptoms: denies other symptoms Treatments prior to arrival: none Related Data Home Medications ?Medication ?Instructions ?Recorded ?Confirmed clonidine HCl 0.1 mg tablet 0.1 mg PO DAILY PRN anxiety 05/01/23 05/01/23 diltiazem HCl 180 mg 180 mg PO DAILY 05/01/23 05/01/23 capsule,extended release 24 hr dulaglutide 0.75 mg/0.5 mL 0.5 mg subcut QWEEK 05/01/23 05/01/23 subcutaneous pen injector (Trulicity) ibuprofen 600 mg tablet 600 mg PO TID PRN pain 05/01/23 05/01/23 prazosin 1 mg capsule (Minipress) 4 mg PO BEDTIME 05/01/23 05/01/23 rosuvastatin 20 mg tablet 20 mg PO DAILY 05/01/23 05/01/23 Previous Rx's ?Medication ?Instructions ?Recorded acetaminophen 650 mg 650 mg PO Q8H PRN pain #30 tabs 01/30/24 tablet,extended release (Tylenol Arthritis Pain) albuterol sulfate 90 mcg/actuation 2 puff inhalation Q6H PRN 01/30/24 aerosol inhaler shortness of breath or wheezing #6.7 grams benzonatate 100 mg capsule 100 mg PO TID PRN cough #14 caps 01/30/24 cephalexin 500 mg capsule 500 mg PO QID 7 days #28 caps 01/30/24 ibuprofen 600 mg tablet 600 mg PO Q6H PRN pain #30 tabs 01/30/24 Allergies Allergy/AdvReac Type Severity Reaction Status Date / Time No Known Allergies Allergy Verified 01/30/24 10:56 [No Known Allergies*] Review of Systems Review of Systems: Yes all other systems are reviewed and are negative Constitutional: Constitutional: Reports as per [facility] Past Medical History Attestation statement: The following information was validated with the patient. Medical History Major depressive disorder, recurrent, severe with psychotic symptoms PTSD (post-traumatic stress disorder) Alcohol use Chest pain High cholesterol Asthma Hypertension Diabetes Palpitation Social History Social History Household Members: None Housing: Apartment Do you presently have visiting nurse or other home services: Yes (they come once a year) Alcohol intake: current Alcohol intake frequency: a few times a month Alcohol type: beer and hard liquor Patient Tobacco Use Status: Never used Tobacco Second Hand Smoke Exposure: No Substance Use Type: Crack/Cocaine Advance Directives: No Advance Directives Information Provided: Yes Do you have a plan to hurt others: No Plan service: No Sexual orientation: Straight/Heterosexual Physical Exam ED Vital Signs: Vital Signs - 24 hr 01/30/24 10:55 01/30/24 12:42 Temperature 98.4 F 98.4 F Pulse Rate 87 87 Respiratory Rate 19 19 Blood Pressure 137/80 137/80 Pulse Oximetry 98 98 Oxygen Delivery Method Room Air Room Air BMI result Body Mass Index 30.4 Const General: cooperative, comfortable and no acute distress Orientation/consciousness: patient oriented x3 Limitations: no limitations HENMT Head: Yes normal to inspection, Yes normocephalic and Yes atraumatic Ears: hearing grossly normal bilaterally General nose exam: Normal external nose present Face and sinus: Yes normal facial exam Mouth: Normal oral and palatal mucosa present, oropharynx normal and moist mucous membranes Throat: Yes posterior oropharynx normal Eyes General: appearance normal, both eyes and all related structures Eyelids: Yes eyelids normal Conjunctivae: conjunctivae normal Sclerae: sclerae normal Pupils: Equal, round and reactive pupils present EOM: EOMs intact bilaterally Neck Neck: Yes normal visual inspection, Yes full ROM and Yes no lymphadenopathy Lymphatic: no lymphadenopathy noted Chest Chest palpation & inspection: normal inspection of the chest Resp Effort & Inspection: normal respiratory effort and able to speak in complete sentences Auscultation: clear to auscultation bilaterally, no crackles, no rales, no rhonchi and no wheezes Cardio Rate: regular rate Rhythm: regular rhythm Heart sounds: S1 normal heart sound present and S2 normal heart sound present GI Other: Abdomen is soft, nontender, nondistended Inspection: Yes normal to inspection Skin General skin exam: no rashes or lesions noted Trauma: no lacerations or abrasions Wounds: no wounds Neuro General: patient oriented x3 and moves all extremities Cranial nerves: Yes Equal, round and reactive pupils present Extrem Other: Right thumb, dorsal aspect just distal to the IP, there is a punctate lesion noted with mild surrounding erythema and warmth. Able to flex and extend of the digit without difficulty. Strong radial pulse. General: Yes normal to inspection Right upper extremity: normal to inspection Left upper extremity: normal to inspection Right lower extremity: normal to inspection Left lower extremity: normal to inspection Course Course Course Narrative: RME, this is a rapid medical exam performed by Nestor Dorman please refer to primary provider for complete H&P- 43-year-old male presents for evaluation of body aches, fever since last night. He also complains of cough and runny nose. Plan for viral swabs. He complains of pain to his right thumb. He has a small red area that reports popping a pimple last night. Appears to be a mild cellulitis, Medications Administered Discontinued Medications Generic Name Dose Route Start Last Admin Trade Name Freq PRN Reason Stop Dose Admin Diphtheria/Tetanus/Acell Pertussis 0.5 ml 01/30/24 12:14 01/30/24 12:26 Diphth,Pertus(Acell),Tet Adult 0.5 Ml Syringe IM 01/30/24 12:15 0.5 ml .ONCE ONE Administration Medical Decision Making Medical Decision Making MDM Narrative: This is a 43-year-old male who presents emergency department complaints of cough, subjective fevers and chills, and body aches since yesterday. Patient also reports a area of redness on his right thumb. On arrival, vital signs within normal limits. He is not endorsing any chest pain. Lungs are clear to auscultation bilaterally. Viral swabs were collected, patient tested positive for COVID. Discussed findings with patient. Given strict return precautions. He also has area of erythema to his right thumb, he is able to flex and extend without difficulty. Will treat with course of Keflex. Given strict return precautions. He was also given updated tetanus in the department as he is on sure when his last 1 was. Patient stable for discharge. Differential Diagnosis Differential Diagnoses: The differential diagnosis associated with the presentation includes COVID, flu, RSV, pneumonia-unlikely, cellulitis, septic arthritis-unlikely Lab Data MDM Lab Attestation statement: I reviewed the patient's lab results. Labs: Lab Results 01/30/24 Range/Units 11:05 Influenza Type A (PCR) NEGATIVE (Negative) Influenza Type B (PCR) NEGATIVE (Negative) RSV RNA Qual (PCR) NEGATIVE (Negative) SARS-CoV-2 RNA (RT-PCR) POSITIVE A (Negative) Radiology Impression Discussion of test interpretation with radiology: I have reviewed the radiologist's reading. External Record Review External record reviewed: Inpatient record, Office record, Outpatient record, Prior outpatient labs, Prior outpatient radiology, Primary care record and Outside ED record Discharge Plan Discharge Clinical Impression: COVID-19, Cellulitis Patient Disposition: Home, Self-Care Instructions: Cellulitis (ED), COVID-19 (Coronavirus Disease 2019) (ED) Additional Instructions: You were seen in the emergency department due to fevers, body aches and a cough. You tested positive for COVID today. Please rest, drink plenty of fluids, and alternate between ibuprofen and Tylenol. You also have redness and swelling to your thumb. This is the start of a skin infection. Please take prescribed antibiotic as directed. Finish the entire course even if your symptoms improve. If you develop difficulty moving your thumb, worsening redness or swelling, please immediately report back to the emergency room. If you develop any other new or worsening symptoms including but not limited to the above symptoms, fevers, chills not responding to Tylenol or Motrin, chest pain or shortness breast, please return for re-evaluation. You need to call your primary care physician today to get back on your medications that you should be taking chronically. Prescriptions: New cephalexin 500 mg capsule 500 mg PO QID 7 Days Qty: 28 0RF ibuprofen 600 mg tablet 600 mg PO Q6H PRN (Reason: pain) Qty: 30 0RF acetaminophen [Tylenol Arthritis Pain] 650 mg tablet extended release 650 mg PO Q8H PRN (Reason: pain) Qty: 30 0RF benzonatate 100 mg capsule 100 mg PO TID PRN (Reason: cough) Qty: 14 0RF albuterol sulfate 90 mcg/actuation HFA aerosol inhaler 2 puff inhalation Q6H PRN (Reason: shortness of breath or wheezing) Qty: 6.7 0RF No Action clonidine HCl 0.1 mg tablet 0.1 mg PO DAILY PRN (Reason: anxiety) diltiazem HCl 180 mg capsule,extended release 24hr 180 mg PO DAILY prazosin [Minipress] 1 mg capsule 4 mg PO BEDTIME ibuprofen 600 mg tablet 600 mg PO TID PRN (Reason: pain) rosuvastatin 20 mg tablet 20 mg PO DAILY Trulicity 0.75 mg/0.5 mL pen injector 0.5 mg subcut QWEEK Stand Alone Forms: Work/School Release Interventions: ED Discharge Assessment Last Done: 01/30/24 12:42 Discharge Date/Time: 01/30/24 12:45 Print Language: Kosovan
[2024-01-30 11:54] LABS: Influenza A PCR NEGATIVE (Negative); Influenza B PCR NEGATIVE (Negative); Resp Syncy Virus RNA Qual PCR NEGATIVE (Negative); SARS COV2 PCR INHOUSE POSITIVE (Negative)
[2024-01-30] MEDS: Diphth,Pertus(ACell),Tet Adult 0.5 ML SYRINGE IM (12:26)
[2024-01-30 12:42] VITALS: BP 137/80; PULSE 87; RESP 19; TEMP 36.9; O2SAT 98
== END 2024-01-30 12:45 | disposition home or self-care (01) ==
PROVIDERS: Physician Assistant; Emergency Provider Emergency Medicine
DX: L03.011 Cellulitis of right finger (principal); S60.311A Abrasion of right thumb, initial encounter; U07.1 COVID-19; M79.10 Myalgia, unspecified site; R50.9 Fever, unspecified; X58.XXXA Exposure to other specified factors, initial encounter; Y93.89 Activity, other specified; Y92.89 Other specified places as the place of occurrence of the external cause; Y99.8 Other external cause status; Z03.818 Encounter for observation for suspected exposure to other biological agents ruled out; Z23 Encounter for immunization; Z79.899 Other long term (current) drug therapy
CPT/HCPCS: 0241U; 90471; 90715; 99282; 99284

== ENCOUNTER 2024-01-31 09:48 | Emergency (ER) | payer OTHER, SELFPAY ==
[2024-01-31 09:56] VITALS: BP 145/94; PULSE 88; RESP 18; TEMP 37.6; O2SAT 100; BMI 30.4
--- NOTE | 2024-01-31 10:16 | ED_ITS ---
HPI - General Adult General Chief complaint: Upper Respiratory Symptoms Stated complaint: Covid+ Time Seen by Provider: 01/31/24 09:54 Source: patient and master plumber Mode of arrival: ambulatory Limitations: language barrier History of Present Illness ED Provider: helga GARCIA narrative: Patient is a 43-year-old Guyanese speaking male with history of T2DM, asthma, diagnosed with Covid in this ED yesterday presenting with ongoing shortness of breath, cough, body aches, sweats. Has been taking prescribed medications with little relief. Was not started on Paxlovid yesterday. Symptoms began Monday. Denies chest pain or palpitations. States symptoms were worst overnight. MD complaint: shortness of breath Onset (ago): day(s) Treatments prior to arrival: other Related Data Home Medications ?Medication ?Instructions ?Recorded ?Confirmed clonidine HCl 0.1 mg tablet 0.1 mg PO DAILY PRN anxiety 05/01/23 05/01/23 diltiazem HCl 180 mg 180 mg PO DAILY 05/01/23 05/01/23 capsule,extended release 24 hr dulaglutide 0.75 mg/0.5 mL 0.5 mg subcut QWEEK 05/01/23 05/01/23 subcutaneous pen injector (Trulicity) ibuprofen 600 mg tablet 600 mg PO TID PRN pain 05/01/23 05/01/23 prazosin 1 mg capsule (Minipress) 4 mg PO BEDTIME 05/01/23 05/01/23 rosuvastatin 20 mg tablet 20 mg PO DAILY 05/01/23 05/01/23 Previous Rx's ?Medication ?Instructions ?Recorded acetaminophen 650 mg 650 mg PO Q8H PRN pain #30 tabs 01/30/24 tablet,extended release (Tylenol Arthritis Pain) albuterol sulfate 90 mcg/actuation 2 puff inhalation Q6H PRN 01/30/24 aerosol inhaler shortness of breath or wheezing #6.7 grams benzonatate 100 mg capsule 100 mg PO TID PRN cough #14 caps 01/30/24 cephalexin 500 mg capsule 500 mg PO QID 7 days #28 caps 01/30/24 ibuprofen 600 mg tablet 600 mg PO Q6H PRN pain #30 tabs 01/30/24 Allergies Allergy/AdvReac Type Severity Reaction Status Date / Time No Known Allergies Allergy Verified 09/04/24 09:58 [No Known Allergies*] Review of Systems Review of Systems: As per HPI. Yes all other systems are reviewed and are negative Constitutional: Constitutional: Reports as per HPI [facility] Past Medical History Medical History Major depressive disorder, recurrent, severe with psychotic symptoms PTSD (post-traumatic stress disorder) Alcohol use Chest pain High cholesterol Asthma Hypertension Diabetes Palpitation Social History Social History Household Members: None Housing: Apartment Do you presently have visiting nurse or other home services: Yes (they come once a year) Alcohol intake: current Alcohol intake frequency: a few times a month Alcohol type: beer and hard liquor Patient Tobacco Use Status: Never used Tobacco Second Hand Smoke Exposure: No Substance Use Type: Crack/Cocaine Advance Directives: No Advance Directives Information Provided: No service: No Sexual orientation: Straight/Heterosexual Physical Exam ED Vital Signs: Vital Signs - 24 hr 01/31/24 09:56 01/31/24 10:49 Temperature 99.7 F Pulse Rate 88 88 Respiratory Rate 18 18 Blood Pressure 145/94 H Pulse Oximetry 100 Oxygen Delivery Method Room Air BMI result Body Mass Index 30.4 Vital signs have been reviewed and appear to be correct. Blood pressure normal. Heart rate normal. Respiratory rate normal. Temperature normal. Oxygen saturation normal. Const General: cooperative, healthy appearing and no acute distress Orientation/consciousness: oriented to person, oriented to place, oriented to time and patient oriented x3 Limitations: no limitations [facility] Head: Yes normocephalic and Yes atraumatic Ears: external ears normal General nose exam: Normal external nose present Face and sinus: Yes face symmetric Mouth: oropharynx normal and moist mucous membranes Throat: Yes uvula midline Eyes Pupils: Equal, round and reactive pupils present Neck Neck: Yes normal visual inspection and Yes supple Resp Effort & Inspection: normal respiratory effort and able to speak in complete sentences Auscultation: clear to auscultation bilaterally and wheezes scattered wheezes Cardio Rate: regular rate Rhythm: regular rhythm Heart sounds: S1 normal heart sound present and S2 normal heart sound present GI Palpation (GI): Soft to palpation and nontender Auscultation: normoactive bowel sounds General: Yes no CVA tenderness Back/Spine/Pelvis Back: no CVA tenderness Skin General skin exam: elasticity normal and turgor normal Neuro General: oriented to person, oriented to place, oriented to time, patient oriented x3, moves all extremities, no focal motor deficits and CN's II-XI intact bilaterally Cranial nerves: Yes Equal, round and reactive pupils present Cognition (Neuro): normal cognition Extrem General: Yes full ROM, Yes no pedal edema and Yes no calf tenderness Psych Mental Status: mental status grossly normal Affect: normal affect Thought process: Normal thought process present Medications Administered Discontinued Medications Generic Name Dose Route Start Last Admin Trade Name Sravanthi PRN Reason Stop Dose Admin Albuterol/Ipratropium 3 ml 01/31/24 10:46 01/31/24 10:49 Albuterol/Iprat 2.5/0.5mg 3 Ml Ampul.Neb INHALE 01/31/24 10:47 3 ml ONCE ONE Administration Medical Decision Making Medical Decision Making MDM Narrative: Patient is a 43-year-old Guyanese speaking male with history of T2DM, asthma, diagnosed with Covid in this ED yesterday presenting with ongoing shortness of breath, cough, body aches, sweats. On exam patient is awake, A+Ox3, VS WNL, afebrile, normal neurological exam without focal deficits, physical exam findings as above. Given reported symptoms and physical exam findings, initial differential includes Covid infection, bronchitis. Unlikely pneumonia. Discussed with patient that symptoms are typical for COVID infection. Patient is specifically requesting breathing treatment. ED bronch protocol ordered. Patient scored 3 on bronchodilator protocol. Discussed with patient that treatment given in the emergency department is the same as the albuterol inhaler he was prescribed at yesterday's visit. Will provide patient with spacer to use with inhaler to increased efficacy. Discussed treatment with Paxlovid which patient ultimately declined. Advised patient to continue using medications prescribed to him yesterday. Follow-up with primary care provider for ongoing symptoms. Return precautions discussed at bedside. Patient verbalized understanding of and agreement with plan. Assessment, results, return precautions and plan discussed via in-person produce assistant at bedside. Differential Diagnosis Differential Diagnoses: The differential diagnosis associated with the presentation includes As per MDM. External Record Review External record reviewed: Inpatient record, Office record and Outpatient record Prescription Management I considered prescription management with: Antiviral (Patient declined) Discharge Plan Discharge Clinical Impression: COVID-19 Patient Disposition: Home, Self-Care Instructions: COVID-19 (Coronavirus Disease 2019) (ED) Additional Instructions: You were evaluated in the emergency department today for cough, fever in the presence of known Covid infection. You should continue to isolate at home for another 3 days. You should continue to wear mask for 5 days after that. You were offered treatment with Paxlovid which you declined. You were given a spacer to use with your inhaler. Follow up with your primary care provider for any ongoing symptoms. Return to the emergency department with worsening shor tness of breath, chest pain, fever that does not improve with Tylenol or ibuprofen, persistent vomiting, or any other concerning symptoms. You should follow-up with your primary care provider. Prescriptions: No Action clonidine HCl 0.1 mg tablet 0.1 mg PO DAILY PRN (Reason: anxiety) diltiazem HCl 180 mg capsule,extended release 24hr 180 mg PO DAILY prazosin [Minipress] 1 mg capsule 4 mg PO BEDTIME ibuprofen 600 mg tablet 600 mg PO TID PRN (Reason: pain) rosuvastatin 20 mg tablet 20 mg PO DAILY Trulicity 0.75 mg/0.5 mL pen injector 0.5 mg subcut QWEEK cephalexin 500 mg capsule 500 mg PO QID 7 Days Qty: 28 0RF ibuprofen 600 mg tablet 600 mg PO Q6H PRN (Reason: pain) Qty: 30 0RF acetaminophen [Tylenol Arthritis Pain] 650 mg tablet extended release 650 mg PO Q8H PRN (Reason: pain) Qty: 30 0RF benzonatate 100 mg capsule 100 mg PO TID PRN (Reason: cough) Qty: 14 0RF albuterol sulfate 90 mcg/actuation HFA aerosol inhaler 2 puff inhalation Q6H PRN (Reason: shortness of breath or wheezing) Qty: 6.7 0RF Print Language: Guyanese
[2024-01-31 10:49] VITALS: PULSE 88; RESP 18; O2SAT 96
[2024-01-31] MEDS: Albuterol/Iprat 2.5/0.5MG 3 ML AMPUL.NEB INHALE (10:49)
[2024-01-31 12:31] VITALS: BP 110/58; PULSE 70; RESP 18; TEMP 37.3; O2SAT 100
== END 2024-01-31 12:32 | disposition home or self-care (01) ==
PROVIDERS: Emergency Provider Emergency Medicine
DX: U07.1 COVID-19 (principal); R06.02 Shortness of breath; R05.9 Cough, unspecified; R61 Generalized hyperhidrosis; E11.8 Type 2 diabetes mellitus with unspecified complications
CPT/HCPCS: 94640; 99283; 99284

== ENCOUNTER 2024-02-12 12:35 | Emergency (ER) | payer OTHER, SELFPAY ==
--- NOTE | ~2024-02-12 | XR_ITS ---
EXAMINATION: XR CHEST CLINICAL INFORMATION: Shortness of breath. COMPARISON: February 10, 2023 TECHNIQUE: 2 views of the chest were obtained. FINDINGS: The lungs are well expanded. No focal consolidation. No pleural effusion. Cardiac silhouette is within normal limits. XR/XR chest 2V IMPRESSION: No acute abnormality. Electronically signed by: Juan Manuel Mae MD 02/12/2024 03:28 PM EDT RP
[2024-02-12 12:42] VITALS: BP 152/93; PULSE 122; RESP 20; TEMP 37.1; O2SAT 96; BMI 29.2
--- NOTE | 2024-02-12 12:45 | ECG_ITS ---
Test Reason : TACHYCARDIA,POST COVIC Blood Pressure : / mmHG Vent. Rate : 109 BPM Atrial Rate : 109 BPM P-R Int : 130 ms QRS Dur : 064 ms QT Int : 322 ms P-R-T Axes : 064 053 005 degrees QTc Int : 433 ms Sinus tachycardia Nonspecific T wave abnormality Abnormal ECG When compared with ECG of 01-MAY-2023 12:02, No significant change was found Referred By: Carina Mathis Electronically Signed By:CHA SOLITARIO
--- NOTE | 2024-02-12 13:03 | ED.SOB ---
HPI - SOB/Dyspnea General Chief Complaint: Dyspnea Stated Complaint: Cough Chest Discomfort Time Seen by Provider: 02/12/24 14:41 Source: patient and old records reviewed Mode of arrival: ambulatory Limitations: no limitations History of Present Illness ED Provider: LORENZO GARCIA Narrative: 44 yo male with PMH of PTSD, cocaine use, alcohol use disorder, asthma, DM, HTN, HLD, bipolar disorder here with c/o dx with COVID 12 days ago did okay but notes since then dry cough that will not go away and having to use rescue nebs and inhalers. No fevers, chest pain, sputum. Last night coughed so much he couldn't sleep. He has not been on steroids or antibiotics. MD elicited complaint: shortness of breath and cough Pertinent past history: asthma Onset (ago): week(s) (2) Context: recent illness Timing: intermittent Severity: moderate Exacerbating factors: exertion and coughing Relieving factors: bronchodilators Known history of: asthma Associated symptoms: cough and wheezing Treatment prior to arrival: bronchodilator Related Data Home Medications ?Medication ?Instructions ?Recorded ?Confirmed clonidine HCl 0.1 mg tablet 0.1 mg PO DAILY PRN anxiety 05/01/23 05/01/23 diltiazem HCl 180 mg 180 mg PO DAILY 05/01/23 05/01/23 capsule,extended release 24 hr dulaglutide 0.75 mg/0.5 mL 0.5 mg subcut QWEEK 05/01/23 05/01/23 subcutaneous pen injector (Trulicity) ibuprofen 600 mg tablet 600 mg PO TID PRN pain 05/01/23 05/01/23 prazosin 1 mg capsule (Minipress) 4 mg PO BEDTIME 05/01/23 05/01/23 rosuvastatin 20 mg tablet 20 mg PO DAILY 05/01/23 05/01/23 Previous Rx's ?Medication ?Instructions ?Recorded acetaminophen 650 mg 650 mg PO Q8H PRN pain #30 tabs 01/30/24 tablet,extended release (Tylenol Arthritis Pain) albuterol sulfate 90 mcg/actuation 2 puff inhalation Q6H PRN 01/30/24 aerosol inhaler shortness of breath or wheezing #6.7 grams benzonatate 100 mg capsule 100 mg PO TID PRN cough #14 caps 01/30/24 cephalexin 500 mg capsule 500 mg PO QID 7 days #28 caps 01/30/24 ibuprofen 600 mg tablet 600 mg PO Q6H PRN pain #30 tabs 01/30/24 azithromycin 250 mg tablet See Rx Instructions PO .COMPLEX #6 02/12/24 tabs budesonide-formoterol HFA 80 1 inh inhalation BID #10.2 grams 02/12/24 mcg-4.5 mcg/actuation aerosol inhaler diltiazem HCl 120 mg capsule,24 120 mg PO DAILY #30 caps 02/12/24 hr,extended release prednisone 20 mg tablet 40 mg (2 x 20 mg) PO DAILY 5 days 02/12/24 #10 tabs Allergies Allergy/AdvReac Type Severity Reaction Status Date / Time No Known Allergies Allergy Verified 02/12/24 12:44 [No Known Allergies*] Review of Systems Review of Systems: Constitutional : No Fever, No Chills ENT/Mouth : No Hoarseness, No sore throat, No Rhinorrhea Eyes: No Redness, No Discharge, No Vision Changes Cardiovascular : No Chest Pain, positive SOB, no Dyspnea on Exertion, No Edema Respiratory : positive Cough, No Sputum, positive Wheezing, Gastrointestinal : No Nausea, No Vomiting, No Diarrhea, No abdominal Pain Genitourinary : No Dysuria, No Hematuria Musculoskeletal : No joint pain, No Myalgias Skin : No rash Neuro : No Weakness, No Numbness, No Headache Psych : No anxiety, depression Heme/Lymph: No Bruising, No Bleeding Endocrine : No Polyuria, No Polydipsia All other systems reviewed and are negative PMFSH Past Medical History Attestation statement: The following information was validated with the patient. Source: old records reviewed Medical History Major depressive disorder, recurrent, severe with psychotic symptoms PTSD (post-traumatic stress disorder) Alcohol use Chest pain High cholesterol Asthma Hypertension Diabetes Palpitation Social History Social History Household Members: None Housing: Apartment Do you presently have visiting nurse or other home services: Yes (they come once a year) Alcohol intake: current Alcohol intake frequency: a few times a month Alcohol type: beer and hard liquor Patient Tobacco Use Status: Never used Tobacco Second Hand Smoke Exposure: No Substance Use Type: Crack/Cocaine Advance Directives: No Advance Directives Information Provided: No Do you have a plan to hurt others: No Plan service: No Sexual orientation: Straight/Heterosexual Physical Exam Vital Signs: Vital Signs: Last Vital Signs Temp 97.9 F 02/12/24 16:02 Pulse 83 02/12/24 16:02 Resp 18 02/12/24 16:02 BP 131/79 02/12/24 16:02 Pulse Ox 94 02/12/24 16:02 O2 Del Method Room Air 02/12/24 16:02 BMI result Body Mass Index 29.2 Appearance: Alert. Oriented X3. No acute distress. Eyes: Pupils equal, round and reactive to light. ENT: Pharynx normal. Neck: Normal inspection. Neck supple. CVS: Normal heart rate and rhythm. Pulses normal. Respiratory: No respiratory distress. Breath sounds normal. Abdomen: Soft and nontender. Skin: Skin warm and dry. Normal skin color. Normal skin turgor. Extremities: No lower extremity edema. No calf ttp Neuro: Oriented X 3. No motor deficit. No sensory deficit. Course Course Course Narrative: This is a Rapid Medical Examination (RME) performed by Anneliese Mathis PA-C in triage. Full HPI, ROS, assessment and treatment plan per primary provider in the Main ED. 44 yo male hx of atrial fibrillation, MDD, bipolar disorder, PTSD, HTN, DM, asthma, cocaine use disorder presents to the ED today for evaluation of cough and shortness of breath beginning last night. Reports testing positive for covid 2 wks ago. Denies chest pain, palpitations. admits he has not been on his losartan or diltiazem for 2 months. +tachy lungs clear. well appearing. Plan: labs, ekg, cxr Medical Decision Making Medical Decision Making MDM Narrative: 44 yo male with PMH of PTSD, cocaine use, alcohol use disorder, asthma, DM, HTN, HLD, bipolar disorder here with c/o persistent cough after COVID 19 dx on 12/30 he is using his rescue inhaler and albuterol nebs at this time likely viral bronchitis but given tachycardia will obtain EKG, ddimer, CXR for pneumonia - I have ordered home steroid inhaler for 2 weeks, prednisone, zpak and his home diltiazem. He is not hypoxic or toxic at this time. Differential Diagnosis Differential Diagnoses: The differential diagnosis associated with the presentation includes VTE, pneumonia, bronchitis, asthma Admission/Observation Consideration of admission/observation: Escalation of care including admission/observation considered VS improved, negative trop, CXR and ddimer can be managed as outpatient will refill his diltiazem Lab Data MDM Lab Attestation statement: I reviewed the patient's lab results. 02/12/24 13:15 02/12/24 13:15 Labs: Lab Results 02/12/24 Range/Units 13:15 WBC 12.8 H (4.8-10.8) X10*3/uL RBC 5.18 (4.60-5.80) X10*6/uL Hgb 15.6 (14.0-18.0) g/dl Hct 43.4 (42.0-52.0) % MCV 83.8 (80.0-98.0) fL MCH 30.1 (27.0-33.0) pg MCHC 35.9 (31.0-36.0) g/dl RDW 11.5 (11.0-16.0) % Plt Count 348 (160-400) X10*3/uL MPV 9.8 (9.4-12.4) fL Immature Gran % (Auto) 0.5 H (0.0-0.4) % Neut % (Auto) 78.8 H (45-73) % Lymph % (Auto) 12.5 L (20-40) % [place] % (Auto) 7.3 (2-11) % Eos % (Auto) 0.5 (0-4) % Baso % (Auto) 0.4 (0-2) % Lymph # (Auto) 1.6 (1.2-4.9) X10*3/uL [place] # (Auto) 0.9 (0.1-1.2) X10*3/uL Eos # (Auto) 0.1 (0.0-0.4) X10*3/uL Baso # (Auto) 0.1 (0.0-0.2) X10*3/uL Abs Immat Gran (auto) 0.07 H (0.00-0.03) X10*3/uL Absolute Neuts (auto) 10.1 H (2.0-8.3) x10*3/uL Absolute Nucleated RBC 0.000 (0.0-0.012) X10*3/uL Nucleated RBC % (auto) 0.0 (0.0-0.2) /100WBC PT 11.1 (11.1-13.3) SEC INR 0.9 (0.9-1.1) D-Dimer High Sensitivty 157 NG/ML Sodium 136 (135-145) mmol/L Potassium 4.3 (3.3-5.1) mmol/L Chloride 99 (96-108) mmol/L Carbon Dioxide 23 (22-29) mmol/L Anion Gap 18 (12-20) BUN 11 (9-16) mg/dL Creatinine 1.00 (0.5-1.4) mg/dL Estim Creat Clear Calc 102.2 Estimated GFR > 60 Random Glucose 322 H (60-115) mg/dL Calcium 9.4 (8.4-10.2) mg/dL Magnesium 1.9 (1.6-2.6) mg/dL Total Bilirubin 1.0 (0.0-1.0) mg/dL AST 23 (5-37) U/L ALT 21 (0-40) U/L Alkaline Phosphatase 119 H (39-117) U/L Troponin I High Sens 6.1 (<3.5-35.0) ng/L B-Natriuretic Peptide < 10 (<100) pg/mL Total Protein 7.6 (6.5-8.0) g/dL Albumin 4.4 (3.5-5.0) g/dL Independent Interpretation I performed an independent interpretation of an: EKG and Plain X-Ray (normal) Interpretation: Rate: 109 Rhythm: sinus tachycardia [place]: normal Normal P waves. Normal MARIAM. Normal QRS complex. ST T wave : no MELE, nonspecific ST T wave changes inf leads qTC: 433 prior studies: no sig change 2022 The study has been interpreted contemporaneously by me. . Radiology Impression Discussion of test interpretation with radiology: I have reviewed the radiologist's reading. External Record Review External record reviewed: Inpatient record and Outpatient record Prescription Management I considered prescription management with: Antibiotic and Other Discharge Plan Discharge Clinical Impression: Bronchitis Patient Disposition: Home, Self-Care Instructions: Acute Bronchitis (ED) Additional Instructions: EKG and chest xray reassuring normal tests of heart and negative for blood clot use steroid inhaler for next two weeks return for any worsening symptoms or concerns follow up with primary care doctor Prescriptions: New azithromycin 250 mg tablet See Rx Instructions .ROUTE .COMPLEX Qty: 6 0RF Rx Instructions: For 250 mg dose pack: take 500 mg today (day 1), then 250 mg for 4 days (days 2-5) prednisone 20 mg tablet 40 mg PO DAILY 5 Days Qty: 10 0RF diltiazem HCl 120 mg capsule,extended release 24 hr 120 mg PO DAILY Qty: 30 0RF budesonide-formoterol 80-4.5 mcg/actuation HFA aerosol inhaler 1 inh inhalation BID Qty: 10.2 0RF Rx Instructions: rinse mouth after - swish and spit No Action clonidine HCl 0.1 mg tablet 0.1 mg PO DAILY PRN (Reason: anxiety) diltiazem HCl 180 mg capsule,extended release 24hr 180 mg PO DAILY prazosin [Minipress] 1 mg capsule 4 mg PO BEDTIME ibuprofen 600 mg tablet 600 mg PO TID PRN (Reason: pain) rosuvastatin 20 mg tablet 20 mg PO DAILY Trulicity 0.75 mg/0.5 mL pen injector 0.5 mg subcut QWEEK cephalexin 500 mg capsule 500 mg PO QID 7 Days Qty: 28 0RF ibuprofen 600 mg tablet 600 mg PO Q6H PRN (Reason: pain) Qty: 30 0RF acetaminophen [Tylenol Arthritis Pain] 650 mg tablet extended release 650 mg PO Q8H PRN (Reason: pain) Qty: 30 0RF benzonatate 100 mg capsule 100 mg PO TID PRN (Reason: cough) Qty: 14 0RF albuterol sulfate 90 mcg/actuation HFA aerosol inhaler 2 puff inhalation Q6H PRN (Reason: shortness of breath or wheezing) Qty: 6.7 0RF Stand Alone Forms: Work/School Release Interventions: ED Discharge Assessment Last Done: 02/12/24 16:02 Discharge Date/Time: 02/12/24 16:03 Print Language: Lithuanian
[2024-02-12 13:20] LABS: MANUAL DIFF FLAG NO
[2024-02-12 13:21] LABS: Basophils Absolute Auto 0.1 X10*3/uL (0.0-0.2); Basophils Percent Auto 0.4 % (0-2); Eosinophils Absolute Auto 0.1 X10*3/uL (0.0-0.4); Eosinophils Percent Auto 0.5 % (0-4); Hematocrit 43.4 % (42.0-52.0); Hemoglobin 15.6 g/dl (14.0-18.0); Imm Gran Abs Auto 0.07 X10*3/uL (0.00-0.03); Imm Gran Pct Auto 0.5 % (0.0-0.4); Lymphocytes Absolute Auto 1.6 X10*3/uL (1.2-4.9); Lymphocytes Percent Auto 12.5 % (20-40); Mean Corpuscular HGB Conc 35.9 g/dl (31.0-36.0); Mean Corpuscular Hemoglobin 30.1 pg (27.0-33.0); Mean Corpuscular Volume 83.8 fL (80.0-98.0); Mean Platelet Volume 9.8 fL (9.4-12.4); Monocytes Absolute Auto 0.9 X10*3/uL (0.1-1.2); Monocytes Percent Auto 7.3 % (2-11); Neutrophils Absolute Auto 10.1 x10*3/uL (2.0-8.3); Neutrophils Percent Auto 78.8 % (45-73); Platelet Count 348 X10*3/uL (160-400); Red Blood Count 5.18 X10*6/uL (4.60-5.80); Red Cell Distribution Width 11.5 % (11.0-16.0); White Blood Count 12.8 X10*3/uL (4.8-10.8)
[2024-02-12 13:26] LABS: INTERNATIONAL NORM RATIO 0.9 (0.9-1.1); Prothrombin Time 11.1 SEC (11.1-13.3)
[2024-02-12 13:36] LABS: Alanine Aminotransferase 21 U/L (0-40); Albumin Level 4.4 g/dL (3.5-5.0); Alkaline Phosphatase 119 U/L (39-117); Anion Gap 18 (12-20); Aspartate Amino Transferase 23 U/L (5-37); Blood Urea Nitrogen 11 mg/dL (9-16); Calcium 9.4 mg/dL (8.4-10.2); Carbon Dioxide 23 mmol/L (22-29); Chloride 99 mmol/L (96-108); Creatinine Clr Calc Pharmacy 102.2; Estimated Glomerular Filt Rate > 60; Glucose Random 322 mg/dL (60-115); Magnesium 1.9 mg/dL (1.6-2.6); Potassium 4.3 mmol/L (3.3-5.1); Sodium 136 mmol/L (135-145); Total Protein 7.6 g/dL (6.5-8.0)
[2024-02-12 13:41] LABS: B Type Natriuretic Peptide < 10 pg/mL (<100)
[2024-02-12 13:43] LABS: Troponin-I High Sensitivity 6.1 ng/L (<3.5-35.0)
[2024-02-12 15:21] VITALS: BP 131/79; PULSE 83; RESP 15; TEMP 36.6; O2SAT 94
[2024-02-12 15:31] LABS: D Dimer High Sensitivity 157 NG/ML
[2024-02-12 16:02] VITALS: BP 131/79; PULSE 83; RESP 18; TEMP 36.6; O2SAT 94
== END 2024-02-12 16:03 | disposition home or self-care (01) ==
PROVIDERS: Physician Assistant Medical; Emergency Provider Emergency Medicine
DX: J40 Bronchitis, not specified as acute or chronic (principal); R06.02 Shortness of breath; R07.89 Other chest pain; R05.9 Cough, unspecified; R00.0 Tachycardia, unspecified; Z79.899 Other long term (current) drug therapy
CPT/HCPCS: 36415; 71046; 80053; 83735; 83880; 84484; 85025; 85379; 85610; 93005; 99283; 99284

== ENCOUNTER 2024-05-09 11:06 | Emergency (ER) | payer OTHER, SELFPAY ==
--- NOTE | ~2024-05-09 | XR_ITS ---
EXAMINATION: XR CHEST CLINICAL INFORMATION: cough COMPARISON: X-ray dated February 12, 2024. TECHNIQUE: 2 views of the chest were obtained. FINDINGS: No consolidation, pleural effusion or pneumothorax. No hyperinflation. Cardiomediastinal silhouette is normal. Multilevel spondylosis, thoracic spine. XR/XR chest 2V IMPRESSION: No acute airspace disease. Stable chest. Spondylosis, thoracic spine. Electronically signed by: Dylon Brown MD 05/09/2024 11:59 AM EST
[2024-05-09 11:25] VITALS: BP 134/79; PULSE 86; RESP 18; TEMP 36.8; O2SAT 97; BMI 30.4
--- NOTE | 2024-05-09 11:28 | ED_ITS ---
HPI - General Adult General Chief complaint: Upper Respiratory Symptoms Stated complaint: chest congestion cough asthma Time Seen by Provider: 05/09/24 11:41 Source: patient Mode of arrival: ambulatory Limitations: no limitations History of Present Illness ED Provider: Horace Peterson PA-C HPI narrative: 44 yo male with history of depression, ETOH use, PTSD, asthma, HTN, DM, HLD, bipolar disorder who presents to the ER for evaluation of productive cough, SOB and worsening asthma symptoms for the last 2 weeks. He reports symptoms started 2 weeks ago and have been worsening. using his prn albuterol inhaler with minimal relief. no chest pain, no fevers. no n/v/d or abdominal pain. he has seasonal allergies but to pollen he thinks and is not currently taking anything for it. he does have nasal congestion and watery eyes but has been present for weeks. MD complaint: sob, asthma, cough Onset (ago): week(s) (2) Location: face and chest Radiation: non-radiation Severity: moderate Pain Consistency: constant Relieving factors: none Exacerbating factors: none Treatments prior to arrival: none Related Data Home Medications ?Medication ?Instructions ?Recorded ?Confirmed clonidine HCl 0.1 mg tablet 0.1 mg PO DAILY PRN anxiety 05/01/23 05/01/23 diltiazem HCl 180 mg 180 mg PO DAILY 05/01/23 05/01/23 capsule,extended release 24 hr dulaglutide 0.75 mg/0.5 mL 0.5 mg subcut QWEEK 05/01/23 05/01/23 subcutaneous pen injector (Trulicity) ibuprofen 600 mg tablet 600 mg PO TID PRN pain 05/01/23 05/01/23 prazosin 1 mg capsule (Minipress) 4 mg PO BEDTIME 05/01/23 05/01/23 rosuvastatin 20 mg tablet 20 mg PO DAILY 05/01/23 05/01/23 Previous Rx's ?Medication ?Instructions ?Recorded acetaminophen 650 mg 650 mg PO Q8H PRN pain #30 tabs 01/30/24 tablet,extended release (Tylenol Arthritis Pain) albuterol sulfate 90 mcg/actuation 2 puff inhalation Q6H PRN 01/30/24 aerosol inhaler shortness of breath or wheezing #6.7 grams benzonatate 100 mg capsule 100 mg PO TID PRN cough #14 caps 01/30/24 cephalexin 500 mg capsule 500 mg PO QID 7 days #28 caps 01/30/24 ibuprofen 600 mg tablet 600 mg PO Q6H PRN pain #30 tabs 01/30/24 azithromycin 250 mg tablet See Rx Instructions PO .COMPLEX #6 02/12/24 tabs budesonide-formoterol HFA 80 1 inh inhalation BID #10.2 grams 02/12/24 mcg-4.5 mcg/actuation aerosol inhaler diltiazem HCl 120 mg capsule,24 120 mg PO DAILY #30 caps 02/12/24 hr,extended release prednisone 20 mg tablet 40 mg (2 x 20 mg) PO DAILY 5 days 02/12/24 #10 tabs azithromycin 250 mg tablet See Rx Instructions PO .COMPLEX #6 05/09/24 (Zithromax Z-Myke) tabs benzonatate 100 mg capsule 100 mg PO TID PRN cough #20 caps 05/09/24 prednisone 20 mg tablet 40 mg (2 x 20 mg) PO DAILY #10 tabs 05/09/24 Allergies Allergy/AdvReac Type Severity Reaction Status Date / Time No Known Allergies Allergy Verified 05/09/24 11:25 [No Known Allergies*] Review of Systems Review of Systems: Yes all other systems are reviewed and are negative PMFSH Past Medical History Medical History Major depressive disorder, recurrent, severe with psychotic symptoms PTSD (post-traumatic stress disorder) Alcohol use Chest pain High cholesterol Asthma Hypertension Diabetes Palpitation Social History Social History Household Members: None Housing: Apartment Do you presently have visiting nurse or other home services: Yes (they come once a year) Alcohol intake: current Alcohol intake frequency: a few times a month Alcohol type: beer and hard liquor Patient Tobacco Use Status: Never used Tobacco Second Hand Smoke Exposure: No Substance Use Type: Crack/Cocaine Advance Directives: No Advance Directives Information Provided: Yes Do you have a plan to hurt others: No Plan service: No Sexual orientation: Straight/Heterosexual Physical Exam ED Vital Signs: Vital Signs - 24 hr 05/09/24 11:25 05/09/24 13:29 Temperature 98.2 F 98.2 F Pulse Rate 86 86 Respiratory Rate 18 18 Blood Pressure 134/79 134/79 Pulse Oximetry 97 97 Oxygen Delivery Method Room Air Room Air BMI result Body Mass Index 30.4 Appearance: Alert. Oriented X3. No acute distress. Head: normocephalic, atraumatic. Eyes: Pupils equal, round and reactive to light. ENT: Pharynx normal. No tonsillar swelling or exudate. Neck: Normal inspection. Neck supple. CVS: Normal heart rate and rhythm. Pulses normal. Respiratory: No respiratory distress. Breath sounds coarse throughout, bronchospastic cough Abdomen: Soft and nontender. +BS x4 Skin: Skin warm and dry. Normal skin color. Normal skin turgor. No rashes. Extremities: No lower extremity edema. No joint swelling. Neuro/psych: Oriented X 3. grossly normal, nonfocal. N II-XII intact. Normal speech and cognition. Course Course Course Narrative: This is a rapid medical exam performed by Katelyn Fam PA-C. The patient is a 44-year-old male with a history of asthma, hypertension, hyperlipidemia, diabetes, polysubstance abuse, alcohol use disorder, bipolar disorder, depression, PTSD, who presents with persistent cough x2 weeks. Patient states the cough is dry repetitive, spasm like. Patient has been using his inhaler without relief of symptoms. On exam, the patient has an active bronchospasm type cough, however no active wheezing his lungs are clear to auscultation. We will obtain a viral panel and a chest x-ray. The patient is hemodynamically stable and can return to the waiting room pending his full medical assessment. Medical Decision Making Medical Decision Making [facility] Narrative: 44 yo male presenting with cough, sob, asthma x2 weeks. no fevers. no chest pain. VSS on arrival. lungs are coarse but no focal wheezing. no difficulty breathing covid, flu, rsv are negative cxr without PNA likely bronchitis. will give course of azithromycin for anti-inflammatory effects and short course of prendisone along w/ antitussive advised to also start zyrtec or clairitin as he reports untreated allergies as well stable for d/c home. encouraged outpatient follow up. return precautions discussed. Differential Diagnosis Differential Diagnoses: The differential diagnosis associated with the presentation includes covid, flu, rsv, other viral syndrome, bronchitis, pneumonia, asthma exacerbation, doubt CHF, ACS, PE Admission/Observation Consideration of admission/observation: Escalation of care including admission/observation considered Lab Data [facility] Lab Attestation statement: I reviewed the patient's lab results. Labs: Lab Results 05/09/24 Range/Units 11:36 Influenza Type A (PCR) NEGATIVE (Negative) Influenza Type B (PCR) NEGATIVE (Negative) RSV RNA Qual (PCR) NEGATIVE (Negative) SARS-CoV-2 RNA (RT-PCR) NEGATIVE (Negative) Independent Interpretation I performed an independent interpretation of an: Plain X-Ray Interpretation: cxr without focal infiltrate Radiology Impression Discussion of test interpretation with radiology: I have reviewed the radiologist's reading. External Record Review External record reviewed: Outpatient record and Prior outpatient labs Prescription Management I considered prescription management with: Antibiotic and Other (antitussive) Chronic Conditions Patient?s care impacted by: Diabetes, Hypertension and Other (asthma) Critical Care Time Critical Care Time Critical Care Time: No Discharge Plan Discharge Clinical Impression: Bronchitis Patient Disposition: Home, Self-Care Instructions: Acute Bronchitis (ED) Additional Instructions: your chest x-ray today did not show any evidence of pneumonia you tested negative for COVID, Flu and RSV Take the prescribed antibiotics as directed for bronchitis, complete the entire course and do not miss any doses take the presdnisone for the next 5 days use your inhaler every 2-4 hours as needed rest and drink plenty of fluids follow up with your doctor If you develop new or worsening symptoms call 911 or come back to the ER for further evaluation. Prescriptions: New azithromycin [Zithromax Z-Myke] 250 mg tablet See Rx Instructions .ROUTE .COMPLEX Qty: 6 0RF Rx Instructions: take 500 mg today (day 1), then 250 mg for 4 days (days 2-5) prednisone 20 mg tablet 40 mg PO DAILY Qty: 10 0RF benzonatate 100 mg capsule 100 mg PO TID PRN (Reason: cough) Qty: 20 0RF No Action clonidine HCl 0.1 mg tablet 0.1 mg PO DAILY PRN (Reason: anxiety) diltiazem HCl 180 mg capsule,extended release 24hr 180 mg PO DAILY prazosin [Minipress] 1 mg capsule 4 mg PO BEDTIME ibuprofen 600 mg tablet 600 mg PO TID PRN (Reason: pain) rosuvastatin 20 mg tablet 20 mg PO DAILY Trulicity 0.75 mg/0.5 mL pen injector 0.5 mg subcut QWEEK cephalexin 500 mg capsule 500 mg PO QID 7 Days Qty: 28 0RF ibuprofen 600 mg tablet 600 mg PO Q6H PRN (Reason: pain) Qty: 30 0RF acetaminophen [Tylenol Arthritis Pain] 650 mg tablet extended release 650 mg PO Q8H PRN (Reason: pain) Qty: 30 0RF benzonatate 100 mg capsule 100 mg PO TID PRN (Reason: cough) Qty: 14 0RF albuterol sulfate 90 mcg/actuation HFA aerosol inhaler 2 puff inhalation Q6H PRN (Reason: shortness of breath or wheezing) Qty: 6.7 0RF azithromycin 250 mg tablet See Rx Instructions .ROUTE .COMPLEX Qty: 6 0RF Rx Instructions: For 250 mg dose pack: take 500 mg today (day 1), then 250 mg for 4 days (days 2-5) prednisone 20 mg tablet 40 mg PO DAILY 5 Days Qty: 10 0RF diltiazem HCl 120 mg capsule,extended release 24 hr 120 mg PO DAILY Qty: 30 0RF budesonide-formoterol 80-4.5 mcg/actuation HFA aerosol inhaler 1 inh inhalation BID Qty: 10.2 0RF Rx Instructions: rinse mouth after - swish and spit Stand Alone Forms: Work/School Release Interventions: ED Discharge Assessment Last Done: 05/09/24 13:29 Discharge Date/Time: 05/09/24 13:30 Print Language: [place] Citizen
[2024-05-09 12:31] LABS: Influenza A PCR NEGATIVE (Negative); Influenza B PCR NEGATIVE (Negative); Resp Syncy Virus RNA Qual PCR NEGATIVE (Negative); SARS COV2 PCR INHOUSE NEGATIVE (Negative)
[2024-05-09 13:29] VITALS: BP 134/79; PULSE 86; RESP 18; TEMP 36.8; O2SAT 97
== END 2024-05-09 13:30 | disposition home or self-care (01) ==
PROVIDERS: Physician Assistant Medical; Emergency Provider Student in an Organized Health Care Education/Training Program
DX: J40 Bronchitis, not specified as acute or chronic (principal); Z03.818 Encounter for observation for suspected exposure to other biological agents ruled out; R05.9 Cough, unspecified; E11.9 Type 2 diabetes mellitus without complications; I10 Essential (primary) hypertension; E78.5 Hyperlipidemia, unspecified; Z79.02 Long term (current) use of antithrombotics/antiplatelets; Z79.85 Long-term (current) use of injectable non-insulin antidiabetic drugs; Z79.899 Other long term (current) drug therapy
CPT/HCPCS: 0241U; 71046; 99282; 99283

== ENCOUNTER → 2024-05-09 11:27 | Outpatient (BNV) | payer OTHER, SELFPAY | PROVIDERS: Emergency Provider Student in an Organized Health Care Education/Training Program; Visit Provider Radiology Diagnostic Radiology | DX: M47.894 Other spondylosis, thoracic region (principal) | CPT/HCPCS: 71046 ==